=== PATIENT | female | born 1955 | race Caucasian/White ===

== ENCOUNTER → 2017-08-14 08:51 | Outpatient (CLI) | payer BC, SELFPAY ==
[2017-08-14 12:07] LABS: Phenytoin (Dilantin) Level 27.1 mL (10.0-20.0)
== END ==
PROVIDERS: Family Provider Family Medicine; PCP Family Medicine
DX: G40.309 Generalized idiopathic epilepsy and epileptic syndromes, not intractable, without status epilepticus (principal)
CPT/HCPCS: 36415; 80184; 80185; 80186

== ENCOUNTER → 2017-09-18 08:00 | Outpatient (CLI) | payer BC, SELFPAY ==
--- NOTE | 2017-09-18 08:01 | HPBI_ITS ---
MAMMOGRAPHY - BILATERAL SCREENING REASON FOR EXAM: Female, 62 years old. Routine annual screening examination. PERTINENT HISTORY: Remote right excisional breast biopsy. TECHNIQUE: Digital bilateral breast butch (3D mammographic acquisition) in the CC and MLO projections. 2-D mediolateral oblique (MLO) and craniocaudad (CC) views of both breasts were obtained. CAD: Full Field Digital Mammography with Computer Added Detection was performed. COMPARISON: Comparison is made with prior examination December 03, 2014. FINDINGS: Breast Composition: The breasts are heterogeneously dense, which may obscure small masses. There are no dominant masses or suspicious calcifications. No other significant abnormalities are identified. There has been no significant change since the prior study. HPBI/SCREENING MAMM (CAD), BILAT IMPRESSION: Stable bilateral screening mammogram. Yearly follow-up mammogram recommended. (A) ASSESSMENT CATEGORY: BIRADS Category 2: Benign. A letter regarding these results will be sent to the patient by the facility within 30 days. Approximately 10% of breast cancers are not detected by mammography. A normal mammogram should not delay biopsy of a clinically suspicious abnormality. [id number] Electronically Signed: Timothy Beyer MD at 9:01 EST Tel [phone], Service support ,
== END ==
PROVIDERS: Family Provider Family Medicine; PCP Family Medicine; Visit Provider Family Medicine
DX: Z12.31 Encounter for screening mammogram for malignant neoplasm of breast (principal)
CPT/HCPCS: 77063; 77067

== ENCOUNTER → 2018-07-18 08:35 | Outpatient (CLI) | payer BC, SELFPAY ==
[2018-07-18 09:26] LABS: Absolute Lymphocyte Count 1.19 X10^3/ul (0.83-4.51); Absolute Neutrophil Count 2.2 X10^3/uL (2.0-7.7); Basophil# 0.01 X10^3/uL; Basophil% 0.3 % (0-1); Hematocrit 45.2 % (37-47); Hemoglobin 14.8 g/dl (12.0-15.0); Lymphocyte # 1.19 X10^3/ul (4.0); Lymphocyte % 30.9 % (19-41); Mean Corp Hgb Conc 32.7 g/gl (32-36); Mean Corpuscular Hgb 30.5 pg (27.0-32.0); Mean Platelet Vol. 9.3 fl (6.2-12.0); Monocyte# 0.44 X10^3/uL; Monocyte% 11.4 % (0-10); Neutrophil # 2.21 X10^3/uL (2.7-7.7); Neutrophil % 57.4 % (47-70); Platelet Count 263 K/mm3 (150-450); RBC Distribution Width SD 46.1 fl (35.1-43.9); Red Blood Count 4.86 M/mm3 (4.2-5.4); White Blood Count 3.9 K/mm3 (4.4-11.0)
[2018-07-18 09:28] LABS: POSITIVE COUNT NO; POSITIVE DIFFERENTIAL NO; POSITIVE MORPHOLOGY NO
[2018-07-18 09:57] LABS: ALB/GLOB Ratio 1.1 RATIO (0.9-2.4); AST(SGOT) 19 U/L (15-37); Alanine Aminotransfer ALT/SGPT 24 U/L (13-56); Albumin, Serum 4.1 g/dL (3.2-5.0); Alkaline Phosphatase 94 U/L (45-117); Anion Gap 7 (5-15); BUN 15 mg/dL (7-18); BUN/Creat Ratio 20.1 RATIO (10-20); Chloride 104 mmol/L (98-107); Cholesterol 242 mg/dL (200); Creatinine, Serum 0.74 mg/dL (0.55-1.02); EST Glomerular Filtration Rate 83 mL/min (>60); Est Glom Filt Rate - Afr Amer 101 mL/min (>60); Globulin 3.8 g/dL (2.2-4.2); Glucose 93 mg/dL (74-106); High Density Lipoprotein 76 mg/dL; Potassium 4.1 mmol/L (3.5-5.1); Protein, Total 7.9 g/dL (6.4-8.2); Sodium Level 143 mmol/L (136-145); Triglycerides 84 mg/dL; Very Low Density Lipoprotein 17 mg/dL (5-40)
[2018-07-18 10:49] LABS: Vitamin D,25 Hydroxy 29.6 ng/mL (29.95-100.01)
[2018-07-18 11:47] LABS: Phenytoin (Dilantin) Level 17.6 mL (10.0-20.0)
== END ==
PROVIDERS: Family Provider Family Medicine; PCP Family Medicine; Referring Provider Family Medicine; Visit Provider Family Medicine
DX: E78.5 Hyperlipidemia, unspecified (principal); Z51.81 Encounter for therapeutic drug level monitoring; E55.9 Vitamin D deficiency, unspecified; R56.9 Unspecified convulsions
CPT/HCPCS: 36415; 80053; 80061; 80184; 80185; 82248; 82306; 85025

== ENCOUNTER → 2018-12-12 15:10 | Outpatient (CLI) | payer BC, SELFPAY ==
--- NOTE | 2018-12-12 15:13 | BI_ITS ---
MAMMOGRAPHY - BILATERAL SCREENING REASON FOR EXAM: Female, 63 years old. Routine annual screening examination. PERTINENT HISTORY: Non-contributory. Remote right excisional breast biopsy. TECHNIQUE: Digital bilateral breast butch (3D mammographic acquisition) in the CC and MLO projections. 2-D mediolateral oblique (MLO) and craniocaudad (CC) views of both breasts were obtained. CAD: Full Field Digital Mammography with Computer Added Detection was performed. COMPARISON: Comparison is made with prior study dated September 18, 2017 and December 03, 2014. FINDINGS: Breast Composition: The breasts are heterogeneously dense, which may obscure small masses. There are no dominant masses or suspicious calcifications. No other significant abnormalities are identified. There has been no significant change since the prior study. BI/SCREENING MAMM (CAD), BILAT IMPRESSION: Stable bilateral screening mammogram. Yearly follow-up mammogram recommended. (A) ASSESSMENT CATEGORY: BIRADS Category 1: Negative. A letter regarding these results will be sent to the patient by the facility within 30 days. Approximately 10% of breast cancers are not detected by mammography. A normal mammogram should not delay biopsy of a clinically suspicious abnormality. [id number] Electronically Signed: Timothy Beyer, at 7:58 EDT , Service support ,
--- NOTE | 2018-12-12 15:14 | BD_ITS ---
STUDY: DUAL ENERGY X-RAY ABSORPTIOMETRY / DXA REASON FOR EXAM: Female, 63 years old. The patient is postmenopausal. No loss of height. TECHNIQUE: Bone Mineral Density (BMD) measurements of lumbar spine and bilateral hips were obtained. COMPARISON: Comparison is made with prior study dated December 03, 2014. FINDINGS: Lumbar Spine (L1-L4): g/cm2 (1.237) / T-score (0.6) / Z-score (2.1) Findings are suggestive of normal bone density with a low fracture risk. Left Femur Total: g/cm2 (0.880) / T-score (-1.0) / Z-score (0.1) Left Femoral Neck: g/cm2 (0.851) / T-score (-1.3) / Z-score (0.1) Right Femur Total: g/cm2 (0.920) / T-score (-0.7) / Z-score (0.5) Right Femoral Neck: g/cm2 (0.907) / T-score (-0.9) / Z-score (0.5) The T-Scores on the most recent prior examination were: Lumbar Spine (L1-L4): There has been improvement of bone density since the previous examination. Left Femur Total: which represents an improvement of 6.2%. Right Femur Total: which represents an improvement of 5.6%. BD/Dexa Bone Density Study IMPRESSION: The patient is considered osteopenic as outlined below according to World Monty Organization (WHO) criteria with a low fracture risk. There has been improvement of bone density since the previous examination. Reference Information: The T-score is the number of standard deviations above or below the standard which is normal for young adults at their peak bone mineral density. The World Health Organization (WHO) interprets the T-scores as follows: Above -1 Normal bone density Between -1 and -2.5 Osteopenia Equal to / or below -2.5 Osteoporosis As a practical clinical guideline, osteopenia may be graded as follows: Mild -1 through -1.5 Moderate -1.6 through -2.0 Severe -2.1 through -2.4 The Z-score is the number of standard deviations above or below age-matched controls. A Z-score of less than -1.5 would be considered abnormal. References: 1. NIH Osteoporosis and Related Bone Diseases http://www.osteo.org 2. International Society for Clinical Densitometry http://www.iscd.org 3. National Osteoporosis Foundation http://www.nof.org Electronically Signed: Timothy Beyer, at 8:06 EDT , Service support ,
== END ==
PROVIDERS: Family Provider Family Medicine; PCP Family Medicine; Referring Provider Family Medicine; Visit Provider Family Medicine
DX: Z12.31 Encounter for screening mammogram for malignant neoplasm of breast (principal); M81.0 Age-related osteoporosis without current pathological fracture; Z78.0 Asymptomatic menopausal state
CPT/HCPCS: 77063; 77067; 77080

== ENCOUNTER → 2019-08-27 08:51 | Outpatient (CLI) | payer MEDICARE, OTHER, SELFPAY ==
[2019-08-27 09:46] LABS: Absolute Lymphocyte Count 0.99 X10^3/uL (0.83-4.51); Absolute Neutrophil Count 1.2 X10^3/uL (2.0-7.7); Basophil# 0.01 X10^3/uL; Basophil% 0.4 % (0-1); Hematocrit 43.9 % (37-47); Hemoglobin 14.1 g/dL (12.0-15.0); Lymphocyte # 0.99 X10^3/ul (4.0); Lymphocyte % 39.8 % (19-41); Mean Corp Hgb Conc 32.1 g/dL (32-36); Mean Corpuscular Hgb 29.6 pg (27.0-32.0); Mean Platelet Vol. 9.7 fl (6.2-12.0); Monocyte# 0.29 X10^3/uL; Monocyte% 11.6 % (0-10); NRBC Flagged by Analyzer 0 % (0-5); Neutrophil # 1.19 X10^3/uL (2.7-7.7); Neutrophil % 47.8 % (47-70); Platelet Count 232 K/mm3 (150-450); RBC Distribution Width CV 13.1 % (11.6-14.6); RBC Distribution Width SD 44.5 fl (35.1-43.9); Red Blood Count 4.77 M/mm3 (4.2-5.4); White Blood Count 2.5 K/mm3 (4.4-11.0)
[2019-08-27 10:24] LABS: ALB/GLOB Ratio 1.1 RATIO (0.9-2.4); AST(SGOT) 13 U/L (15-37); Alanine Aminotransfer ALT/SGPT 25 U/L (13-56); Albumin, Serum 4.1 g/dL (3.2-5.0); Alkaline Phosphatase 85 U/L (45-117); Anion Gap 2 (5-15); BUN 14 mg/dL (7-18); BUN/Creat Ratio 19.1 RATIO (10-20); Calcium,Total 9.1 mg/dL (8.5-10.1); Chloride 103 mmol/L (98-107); Cholesterol 236 mg/dL (200); Creatinine, Serum 0.73 mg/dL (0.55-1.02); EST Glomerular Filtration Rate 85 mL/min (>60); Est Glom Filt Rate - Afr Amer 103 mL/min (>60); Globulin 3.9 g/dL (2.2-4.2); Glucose 91 mg/dL (74-106); High Density Lipoprotein 77 mg/dL; Potassium 4.1 mmol/L (3.5-5.1); Sodium Level 138 mmol/L (136-145); Triglycerides 67 mg/dL; Very Low Density Lipoprotein 13 mg/dL (5-40); Vitamin D,25 Hydroxy 34.1 ng/mL (29.95-100.01)
[2019-08-27 10:29] LABS: Phenytoin (Dilantin) Level 24.9 mL (10.0-20.0)
== END ==
PROVIDERS: PCP Family Medicine; Referring Provider Family Medicine; Visit Provider Family Medicine
DX: E78.5 Hyperlipidemia, unspecified (principal); R56.9 Unspecified convulsions; R53.83 Other fatigue; E55.9 Vitamin D deficiency, unspecified; Z51.81 Encounter for therapeutic drug level monitoring
CPT/HCPCS: 36415; 80053; 80061; 80184; 80185; 82306; 85025

== ENCOUNTER → 2020-03-18 10:18 | Outpatient (CLI) | payer MEDICARE, OTHER, SELFPAY ==
--- NOTE | 2020-03-18 10:20 | BI_ITS ---
MAMMOGRAPHY - BILATERAL SCREENING REASON FOR EXAM: Female, 64 years old. Routine annual screening examination. PERTINENT HISTORY: Non-contributory. TECHNIQUE: Digital bilateral breast angel (3D mammographic acquisition) in the CC and MLO projections. 2-D mediolateral oblique (MLO) and craniocaudad (CC) views of both breasts were obtained. CAD: Full Field Digital Mammography with Computer Added Detection was performed. COMPARISON: Comparison is made with prior study dated 12/12/2018 and 09/18/2017. FINDINGS: Breast Composition: The breasts are heterogeneously dense, which may obscure small masses. There are no dominant masses or suspicious calcifications. There now is evidence of a 8.2 mm x 7.4 mm well-defined nodule at the 6 o''clock position of the left breast. Correlation with ultrasound is recommended. No other significant abnormalities are identified. BI/SCREEN MAMM (CAD) W/ANGEL BILAT IMPRESSION: There is a new 8.2 mm x 7.4 mm well-defined nodule at the 6 o''clock position of the left breast as described. Correlation with ultrasound is recommended. ASSESSMENT CATEGORY: BIRADS Category 0: Incomplete. Need additional imaging evaluation. A letter regarding these results will be sent to the patient by the facility within 30 days. Approximately 10% of breast cancers are not detected by mammography. A normal mammogram should not delay biopsy of a clinically suspicious abnormality. [id number] Electronically Signed: Timothy Beyer, at 11:34 EDT , Service support ,
== END ==
PROVIDERS: PCP Family Medicine; Referring Provider Family Medicine; Visit Provider Family Medicine
DX: Z12.31 Encounter for screening mammogram for malignant neoplasm of breast (principal); R92.8 Other abnormal and inconclusive findings on diagnostic imaging of breast; N63.25 Unspecified lump in the left breast, overlapping quadrants
CPT/HCPCS: 77063; 77067

== ENCOUNTER → 2020-03-22 08:29 | Outpatient (CLI) | payer MEDICARE, OTHER, SELFPAY ==
--- NOTE | 2020-03-22 08:31 | US_ITS ---
STUDY: ULTRASOUND BREAST - LEFT REASON FOR EXAM: Female, 64 years old. Abnormal screening mammogram. TECHNIQUE: Axial and longitudinal images of the LEFT breast were performed with a high resolution ultrasound transducer. # OF IMAGES: 35 COMPARISON: Comparison is made with prior mammogram dated 03/18/2020. FINDINGS: LEFT Breast: The mammographic abnormality corresponds to a 7 mm x 7 mm x 2 mm cystic/solid nodule at the 5 o''clock position of the breast at 2 cm from the nipple. This may represent a complicated cyst although aspiration is recommended. US/Breast Limited Unilateral IMPRESSION: The mammographic abnormality corresponds to a 7 mm x 7 mm x 2 mm cystic/solid nodule. Needle aspiration is recommended. ASSESSMENT CATEGORY: BIRADS Category 4: Suspicious - Biopsy Should Be Considered. A letter regarding these results will be sent to the patient by the facility within 30 days. Electronically Signed: Timothy Beyer, at 10:08 EDT , Service support ,
== END ==
PROVIDERS: PCP Family Medicine; Referring Provider Family Medicine; Visit Provider Family Medicine
DX: R92.8 Other abnormal and inconclusive findings on diagnostic imaging of breast (principal); N63.20 Unspecified lump in the left breast, unspecified quadrant
CPT/HCPCS: 76642

== ENCOUNTER → 2020-04-21 14:48 | Outpatient (CLI) | payer MEDICARE, OTHER, SELFPAY ==
[2020-04-21 14:00] VITALS: BMI 31.6
--- NOTE | 2020-04-21 14:51 | BI_ITS ---
MAMMOGRAPHY - UNILATERAL DIAGNOSTIC: LEFT BREAST REASON FOR EXAM: Female, 64 years old. Post aspiration images. PERTINENT HISTORY: TECHNIQUE: Digital unilateral breast butch (3D mammographic acquisition) in the CC and MLO projections. 2-D mediolateral oblique (MLO) and craniocaudad (CC) views of both breasts were obtained. CAD: Full Field Digital Mammography with Computer Added Detection was performed. COMPARISON: Comparison is made with prior study dated 03/18/2020. FINDINGS: Breast Composition: The breasts are heterogeneously dense, which may obscure small masses. The previously seen nodular density in the inferior central portion of the left breast has decreased in size. It presently measures 6.4 mm x 4.9 mm. No other significant abnormalities are identified. BI/DIAG MAMM W/CAD, UNILAT IMPRESSION: Status post aspiration of a nodular density in the inferior central portion of the left breast. The nodule has decreased in size. ASSESSMENT CATEGORY: BIRADS Category 2: Benign. A letter regarding these results will be sent to the patient by the facility within 30 days. Approximately 10% of breast cancers are not detected by mammography. A normal mammogram should not delay biopsy of a clinically suspicious abnormality. Electronically Signed: Timothy Beyer, at 15:34 EDT , Service support ,
== END ==
PROVIDERS: PCP Family Medicine; Referring Provider Surgery; Visit Provider Surgery
DX: Z98.890 Other specified postprocedural states (principal); N63.42 Unspecified lump in left breast, subareolar
CPT/HCPCS: 77065

== ENCOUNTER → 2020-09-04 08:11 | Outpatient (CLI) | payer MEDICARE, OTHER, SELFPAY ==
[2020-04-21 14:00] VITALS: BMI 31.6
[2020-09-04 08:54] LABS: Hematocrit 43.8 % (37-47); Hemoglobin 13.9 g/dL (12.0-15.0); Mean Corp Hgb Conc 31.7 g/dL (32-36); Mean Corpuscular Volume 94.6 fL (81-99); Mean Platelet Vol. 9.6 fl (6.2-12.0); Platelet Count 227 K/mm3 (150-450); RBC Distribution Width CV 13.7 % (11.6-14.6); RBC Distribution Width SD 48.2 fl (35.1-43.9); Red Blood Count 4.63 M/mm3 (4.2-5.4); White Blood Count 3.4 K/mm3 (4.4-11.0)
[2020-09-04 09:30] LABS: AST(SGOT) 20 U/L (15-37); Alanine Aminotransfer ALT/SGPT 25 U/L (13-56); Albumin, Serum 4.1 g/dL (3.2-5.0); Alkaline Phosphatase 83 U/L (45-117); Anion Gap 2 (5-15); BUN 15 mg/dL (7-18); BUN/Creat Ratio 21.1 RATIO (10-20); Bilirubin, Direct 0.08 mg/dL (0.00-0.30); Calcium,Total 8.8 mg/dL (8.5-10.1); Chloride 106 mmol/L (98-107); Creatinine, Serum 0.71 mg/dL (0.55-1.02); EST Glomerular Filtration Rate 88 mL/min (>60); Est Glom Filt Rate - Afr Amer 106 mL/min (>60); Globulin 3.7 g/dL (2.2-4.2); Glucose 76 mg/dL (74-106); Potassium 3.9 mmol/L (3.5-5.1); Protein, Total 7.8 g/dL (6.4-8.2); Sodium Level 140 mmol/L (136-145)
== END ==
PROVIDERS: PCP Family Medicine
DX: R56.9 Unspecified convulsions (principal)
CPT/HCPCS: 36415; 80048; 80076; 85027

== ENCOUNTER 2021-08-04 10:28 | Outpatient (CLI) | payer MEDICARE, OTHER, SELFPAY ==
[2021-08-04 11:29] LABS: Absolute Lymphocyte Count 1.11 X10^3/uL (0.83-4.51); Absolute Neutrophil Count 2.1 X10^3/uL (2.0-7.7); Basophil# 0.01 X10^3/uL; Basophil% 0.3 % (0-1); Hematocrit 45.1 % (37-47); Hemoglobin 14.3 g/dL (12.0-15.0); Lymphocyte # 1.11 X10^3/ul (0.83-4.51); Lymphocyte % 29.8 % (19-41); Mean Corp Hgb Conc 31.7 g/dL (32-36); Mean Corpuscular Hgb 29.7 pg (27.0-32.0); Mean Corpuscular Volume 93.6 fL (81-99); Mean Platelet Vol. 9.6 fl (6.2-12.0); Monocyte# 0.48 X10^3/uL; Monocyte% 12.9 % (0-10); NRBC Flagged by Analyzer 0 % (0-5); Neutrophil # 2.11 X10^3/uL (2.7-7.7); Neutrophil % 56.7 % (47-70); Platelet Count 250 K/mm3 (150-450); RBC Distribution Width CV 13.4 % (11.6-14.6); RBC Distribution Width SD 45.7 fl (35.1-43.9); Red Blood Count 4.82 M/mm3 (4.2-5.4); White Blood Count 3.7 K/mm3 (4.4-11.0)
[2021-08-04 12:13] LABS: Vitamin D,25 Hydroxy 33.6 ng/mL
[2021-08-04 12:17] LABS: ALB/GLOB Ratio 1.1 RATIO (0.9-2.4); AST(SGOT) 17 U/L (15-37); Alanine Aminotransfer ALT/SGPT 29 U/L (13-56); Albumin, Serum 4.2 g/dL (3.2-5.0); Alkaline Phosphatase 88 U/L (45-117); Anion Gap 3 (5-15); BUN 13 mg/dL (7-18); BUN/Creat Ratio 19.9 RATIO (10-20); Calcium,Total 9.1 mg/dL (8.5-10.1); Chloride 103 mmol/L (98-107); Cholesterol 226 mg/dL (200); Creatinine, Serum 0.65 mg/dL (0.55-1.02); EST Glomerular Filtration Rate 96 mL/min (>60); Est Glom Filt Rate - Afr Amer 116 mL/min (>60); Globulin 3.9 g/dL (2.2-4.2); Glucose 95 mg/dL (74-106); High Density Lipoprotein 82 mg/dL; Potassium 4.2 mmol/L (3.5-5.1); Protein, Total 8.1 g/dL (6.4-8.2); Sodium Level 139 mmol/L (136-145); Triglycerides 69 mg/dL; Very Low Density Lipoprotein 14 mg/dL (5-40)
[2021-08-04 12:19] LABS: Phenytoin (Dilantin) Level 24.9 mL (10.0-20.0)
== END 2021-08-04 23:59 | disposition short-term general hospital (02) ==
PROVIDERS: PCP Family Medicine; Referring Provider Family Medicine; Visit Provider Family Medicine
DX: E78.5 Hyperlipidemia, unspecified (principal); E55.9 Vitamin D deficiency, unspecified; Z51.81 Encounter for therapeutic drug level monitoring
CPT/HCPCS: 36415; 80053; 80061; 80184; 80185; 82306; 85025

== ENCOUNTER 2021-08-10 10:24 | Outpatient (CLI) | payer MEDICARE, OTHER, SELFPAY ==
--- NOTE | 2021-08-10 10:26 | BI_ITS ---
MAMMOGRAPHY - BILATERAL SCREENING REASON FOR EXAM: Female, 66 years old. Routine annual screening examination. PERTINENT HISTORY: Non-contributory. History of prior right excisional breast biopsy and left breast aspiration.. TECHNIQUE: Digital bilateral breast angel (3D mammographic acquisition) in the CC and MLO projections. 2-D mediolateral oblique (MLO) and craniocaudad (CC) views of both breasts were obtained. CAD: Full Field Digital Mammography with Computer Added Detection was performed. COMPARISON: Comparison is made with prior study dated 03/18/2020 and 04/21/2020. FINDINGS: Breast Composition: The breasts are heterogeneously dense, which may obscure small masses. The previously seen nodular density in the inferior central portion of the left breast has increased in size. It presently measures 1.4 cm x 1.1 cm. Correlation with ultrasound is recommended. No other significant abnormalities are identified. BI/SCRN MAMM (CAD)W/ANGEL BILAT IMPRESSION: Interval increase in size of the previously seen nodule in the deep inferior central portion of the left breast as described. Correlation with ultrasound is recommended. ASSESSMENT CATEGORY: BIRADS Category 0: Incomplete. Need additional imaging evaluation. A letter regarding these results will be sent to the patient by the facility within 30 days. Approximately 10% of breast cancers are not detected by mammography. A normal mammogram should not delay biopsy of a clinically suspicious abnormality. [id number] Electronically Signed: Timothy Beyer MD at 12:13 EST , Service support ,
--- NOTE | 2021-08-10 10:30 | BD_ITS ---
STUDY: DUAL ENERGY X-RAY ABSORPTIOMETRY / DXA REASON FOR EXAM: Female, 66 years old. 627.8Menopausal postmenopausalBONE DENSITY REASON FOR EXAM TECHNIQUE: Bone Mineral Density (BMD) measurements of lumbar spine and bilateral hips were obtained. COMPARISON: Comparison is made with prior study dated 12/12/2018. FINDINGS: Lumbar Spine (L1-L4): g/cm2 (0.987) / T-score (0.1) / Z-score (1.9) Findings are suggestive of normal bone density with a low fracture risk. Left Femur Total: g/cm2 (0.811) / T-score (-1.1) / Z-score (0.3) Left Femoral Neck: g/cm2 (0.772) / T-score (-0.7) / Z-score (0.9) Right Femur Total: g/cm2 (0.870) / T-score (-0.6) / Z-score (0.8) Right Femoral Neck: g/cm2 (0.811) / T-score (-0.3) / Z-score (1.3) The T-Scores on the most recent prior examination were: Lumbar Spine (L1-L4): There has been worsening of bone density since the previous examination. Left Femur Total: which represents a worsening of 0.8%. Right Femur Total: which represents an improvement of 1.6%. BD/Dexa Bone Density Study IMPRESSION: The patient is considered osteopenic as outlined below according to World Monty Organization (WHO) criteria with a low fracture risk. There has been worsening of bone density since the previous examination. Reference Information: The T-score is the number of standard deviations above or below the standard which is normal for young adults at their peak bone mineral density. The World Health Organization (WHO) interprets the T-scores as follows: Above -1 Normal bone density Between -1 and -2.5 Osteopenia Equal to / or below -2.5 Osteoporosis As a practical clinical guideline, osteopenia may be graded as follows: Mild -1 through -1.5 Moderate -1.6 through -2.0 Severe -2.1 through -2.4 The Z-score is the number of standard deviations above or below age-matched controls. A Z-score of less than -1.5 would be considered abnormal. References: 1. NIH Osteoporosis and Related Bone Diseases www osteo.org 2. International Society for Clinical Densitometry www iscd.org 3. National Osteoporosis Foundation www nof.org Electronically Signed: Timothy Beyer MD at 15:40 EST , Service support ,
== END 2021-08-10 23:59 | disposition short-term general hospital (02) ==
LOC: OPBD 10:25
PROVIDERS: PCP Family Medicine; Referring Provider Family Medicine; Visit Provider Family Medicine
DX: Z12.31 Encounter for screening mammogram for malignant neoplasm of breast (principal); Z78.0 Asymptomatic menopausal state
CPT/HCPCS: 77063; 77067; 77080

== ENCOUNTER 2021-08-12 08:16 | Outpatient (CLI) | payer MEDICARE, OTHER, SELFPAY ==
--- NOTE | 2021-08-12 08:19 | US_ITS ---
STUDY: ULTRASOUND BREAST - LEFT REASON FOR EXAM: Female, 66 years old. Abnormal screening mammogram. TECHNIQUE: Axial and longitudinal images of the LEFT breast were performed with a high resolution ultrasound transducer. # OF IMAGES: 21 COMPARISON: Comparison is made with prior mammogram dated 08/10/2021 and prior ultrasound of the left breast dated 03/22/2020. FINDINGS: LEFT Breast: There is a 8mm by 9 mm x 2 mm cyst at the 5 o''clock position breast at 2 cm from nipple. This is unchanged. The mammographic abnormality corresponds to a 1 cm x 1.5 cm x 0.9 cm mixed echogenicity solid nodule at the 7 o''clock position of the breast at 2 cm from nipple. A biopsy is recommended. US/Breast Limited Unilateral IMPRESSION: Stable 8 mm x 9 mm x 2 mm cyst at the 5 o''clock position of the breast at 2 cm from nipple. There is a new 1 cm x 1.5 cm x 0.9 cm complex solid nodule at the 7 o''clock location of the breast at 2 cm from nipple. This corresponds to the mammographic findings. Biopsy is recommended. ASSESSMENT CATEGORY: BIRADS Category 4: Suspicious - Biopsy Should Be Considered. A letter regarding these results will be sent to the patient by the facility within 30 days. Electronically Signed: Timothy Beyer MD at 15:18 EST , Service support ,
== END 2021-08-12 23:59 | disposition short-term general hospital (02) ==
LOC: OPUS 08:16
PROVIDERS: PCP Family Medicine; Referring Provider Family Medicine; Visit Provider Family Medicine
DX: N63.23 Unspecified lump in the left breast, lower outer quadrant (principal); N63.24 Unspecified lump in the left breast, lower inner quadrant
CPT/HCPCS: 76642

== ENCOUNTER 2021-08-17 11:36 | Outpatient (CLI) | payer MEDICARE, OTHER, SELFPAY ==
--- NOTE | 2021-08-17 | IMM_PTH ---
PATIENT: SIDDHARTH MCKEON LOC: [facility] U#:[id number] AGE/SX: 66/F ROOM: RE08/17/[address]: Dr. Rip Montanez MD : 1955 BED: DIS: 08/17/2021 SPEC #: [id number] RECD: 08/18/21 12:24 STATUS: CEDRIC REAvelina #: [id number] JOHN: 08/17/21 00:[address]: Rip Montanez DEPT: IMMUNOHISTOCHEMISTRY RECD BY: Cassy Moore ENTERED: 08/18/21 12:26 SP TYPE: IMMUNO OTHR DR: Dr. Radha Gómez DO Tissues: Left breast, NOS Procedures: CALPONIN-1 (add) CK5-6 (add) CK8 (add) BARRAGAN-2 (add) E-CAD (add) HER2 CRUZ (add) KI-67 (add) P53 (add) MN (add) P40 (add) ER (initial) PHYSICIAN & [address] [address] SPECIMEN INFORMATION: Tissue Source: Left breast Clinical Info: Abnormal left breast ultrasound Specimen Number: [id number] CPT code: 01971, 51102 x7, 34786 x3 METHODOLOGY: Deparaffinized sections of prefer/formalin-fixed tissue or PAP/DQ stained slides are incubated with monoclonal/polyclonal antibodies/oligonucleotide probes. Localization is made via biotin free immunoperoxidase method. Appropriate controls are performed and reacted as expected. Results on target cell population are indicated in the following table: RESULTS: ANTIBODY / CLONE RESULT P53 (DO-7) positive, 5%, dim Ki-67 (30-9) positive, 10% CK8 (86ndpmI72) positive CK5-6 (D5 & 1684) negative Calponin-1 (UW564Y) negative P40 (BC28) negative E-Cad (ECH-6) positive BARRAGAN-2 (SP21) positive MORPHOMETRIC ANALYSIS ER (clone 6F11) >95%, strong MN (clone 16/1E2) >95%, strong Her-2Neu (clone CB11) 0 The prognostic test for HER2 is performed on formalin-fixed paraffin embedded tissue. A 3+ (positive) staining pattern is defined as intense, homogeneous, complete, circumferential membranous staining in >10% of contiguous tumor cells. A similar weak (2+) staining pattern is interpreted as equivocal. CYNDI follow-up testing is recommended for all equivocal cases. Positivity/negativity for ER/MN is reported if > or < 1% of the tumor cells are immuno- reactive, respectively. The ASCO/CAP criteria is used for scoring. Reference: Journal of Clinical Oncology, 2013; 31:7113-6396 & 2010; 16:3911-1073. Duration of fixation: 12 Hrs; Sample Adequate: Yes. These assays have not been validated on decalcified tissues. Results should be interpreted with caution given the likelihood of false negativity on decalcified specimens. These tests were developed and their performance characteristics determined by [facility]. They may not have been cleared or approved by the U.S. Food and Drug Administration. The FDA has determined that such clearance or approval is not necessary. The above immunohistochemical/dualISH markers are ordered and reviewed by the Pathologist. INTERPRETATION: Left breast, biopsy: Invasive (colloid) carcinoma, nuclear grade 1-2. Positive for estrogen receptors (favorable prognostic indicator). Positive for progesterone receptors (favorable prognostic indicator). Negative for overexpression of UAF9rrx. AM:марина 08/19/2021
--- NOTE | 2021-08-17 07:40 | BRBX_PTH ---
PATIENT: SIDDHARTH MCKEON LOC: [facility] U#:[id number] AGE/SX: 66/F ROOM: RE08/17/[address]: Dr. Rip Montanez MD : 1955 BED: DIS: 08/17/2021 SPEC #: [id number] RECD: 08/17/21 11:17 STATUS: CEDRIC DIEZ #: [id number] JOHN: 08/17/21 07:[address]: Rip Montanez DEPT: SURGICAL PATHOLOGY RECD BY: Wilfredo Rich ENTERED: 08/17/21 11:49 SP TYPE: BREAST BX OTHR DR: Dr. Radha Gómez, DO Tissues: Left breast, NOS Procedures: Surgery Specimen Level IV HEADER OPERATION: Left breast biopsy PRE-OP DIAGNOSIS: Abnormal left breast ultrasound TISSUE SUBMITTED: Left breast tissue MICROSCOPIC DIAGNOSIS Left breast, ultrasound-guided core biopsy: Invasive ductal carcinoma (colloid carcinoma) with the following characteristics: Nuclear grade ? grade 1-2/3 Maximal length ? 5 millimeters See comment. AM:марина 08/18/2021 COMMENT Immunohistochemistry ([id number]) supports the above diagnosis. Case has been reviewed in consultation with Dr. Lazaro who concurs with the above diagnosis. IDC:REHAN MICROSCOPIC DESCRIPTION Slides are reviewed. GROSS DESCRIPTION Received in fixative is one container labeled with the patient's name and designated left breast. The specimen consists of multiple elongated fragments of nam-yellow fibroadipose tissue that in aggregate measure 1.5 x 1 x 0.1 cm. The entire specimen is submitted in one cassette. / REHAN:марина 08/17/2021 TC:0 CPT: 68259
== END 2021-08-17 23:59 | disposition short-term general hospital (02) ==
LOC: LABSPEC 11:38
PROVIDERS: PCP Family Medicine; Visit Provider Surgery
DX: C50.912 Malignant neoplasm of unspecified site of left female breast (principal)
CPT/HCPCS: 88305; 88341; 88342

== ENCOUNTER 2021-09-07 07:33 | Day surgery (SDC) | payer MEDICARE, OTHER, SELFPAY ==
--- NOTE | 2021-09-06 11:08 | EKG12_ITS ---
Test Reason : PREOP Blood Pressure : / mmHG Vent. Rate : 068 BPM Atrial Rate : 068 BPM P-R Int : 154 ms QRS Dur : 082 ms QT Int : 388 ms P-R-T Axes : 061 040 020 degrees QTc Int : 412 ms Normal sinus rhythm Normal ECG Confirmed by AP BRIGHT, OLEGARIO ([id number]), film or videotape editor REN RYAN ([id number]) on 09/07/2021 11:49:29 AM Referred By: Rip Montanez Confirmed By:OLEGARIO DE SOUZA MD
--- NOTE | 2021-09-06 11:10 | RAD_ITS ---
STUDY: X-RAY CHEST REASON FOR EXAM: Female, 66 years old. PREOP -- BREAST CANCER TECHNIQUE: PA and lateral views of the chest. COMPARISON: Comparison is made with prior study dated 08/13/2012. FINDINGS: There is hyperinflation of the lungs consistent with chronic obstructive lung disease (COPD). There is no demonstrated pleural abnormality. Normal size heart. Normal mediastinum and li. Normal visualized pulmonary arteries. Normal visualized aortic arch and descending thoracic aorta. There is demineralization of the osseous structures. Normal visualized ribs, clavicles, and shoulders. There is no demonstrated abnormality of the visualized soft tissue structures of the upper abdomen. RAD/Chest PA and Lateral IMPRESSION: Hyperinflation. The lungs are clear. Electronically Signed: Timothy Beyer MD at 14:05 EST ,
[2021-09-06 12:25] LABS: Hematocrit 43.1 % (37-47); Hemoglobin 13.9 g/dL (12.0-15.0); Mean Corp Hgb Conc 32.3 g/dL (32-36); Mean Corpuscular Hgb 30.2 pg (27.0-32.0); Mean Corpuscular Volume 93.5 fL (81-99); Mean Platelet Vol. 9.3 fl (6.2-12.0); Platelet Count 248 K/mm3 (150-450); RBC Distribution Width CV 13.8 % (11.6-14.6); RBC Distribution Width SD 47.8 fl (35.1-43.9); Red Blood Count 4.61 M/mm3 (4.2-5.4); White Blood Count 5.2 K/mm3 (4.4-11.0)
[2021-09-06 13:03] LABS: ALB/GLOB Ratio 1.1 RATIO (0.9-2.4); AST(SGOT) 19 U/L (15-37); Alanine Aminotransfer ALT/SGPT 27 U/L (13-56); Albumin, Serum 4.1 g/dL (3.2-5.0); Alkaline Phosphatase 83 U/L (45-117); Anion Gap 5 (5-15); BUN 14 mg/dL (7-18); BUN/Creat Ratio 19.1 RATIO (10-20); Chloride 104 mmol/L (98-107); Creatinine, Serum 0.73 mg/dL (0.55-1.02); EST Glomerular Filtration Rate 84 mL/min (>60); Est Glom Filt Rate - Afr Amer 102 mL/min (>60); Globulin 3.8 g/dL (2.2-4.2); Glucose 92 mg/dL (74-106); Protein, Total 7.9 g/dL (6.4-8.2); Sodium Level 140 mmol/L (136-145)
[2021-09-07] VITALS (7 sets, daily range): BP systolic 132–145; BP diastolic 62–81; PULSE 60–66; RESP 16–18; TEMP 36.3–37; O2SAT 97–100; BMI 33.0
--- NOTE | 2021-09-07 | IMM_PTH ---
PATIENT: SIDDHARTH MCKEON LOC: [facility] U#:[id number] AGE/SX: 66/F ROOM: RE09/07/[address]: Dr. Rip Montanez MD : 1955 BED: DIS: 09/07/2021 SPEC #: [id number] RECD: 09/13/21 07:31 STATUS: CEDRIC REQ #: [id number] JOHN: 09/07/21 00:[address]: Rip Montanez DEPT: IMMUNOHISTOCHEMISTRY RECD BY: Cassy Moore ENTERED: 09/13/21 07:32 SP TYPE: IMMUNO OTHR DR: Dr. Radha Gómez, DO Tissues: A - Axillary lymph node, NOS Procedures: CK7 (add) Pankeratin (initial) Pankeratin (add) PHYSICIAN & INSTITUTION [place] [address] SPECIMEN INFORMATION: Tissue Source: A ? Left axillary sentinel lymph nodes Clinical Info: Abnormal US and mammogram left breast, left breast mass Specimen Number: [id number] A1-A4 CPT code: 16366, 97605 x7 METHODOLOGY: Deparaffinized sections of prefer/formalin-fixed tissue or PAP/DQ stained slides are incubated with monoclonal/polyclonal antibodies/oligonucleotide probes. Localization is made via biotin free immunoperoxidase method. Appropriate controls are performed and reacted as expected. Results on target cell population are indicated in the following table: RESULTS: ANTIBODY / CLONE RESULT Block A1 AE1-3 (AE1/AE3/PCK26) negative CK7 (OV-TL12/30) negative Block A2 AE1-3 (AE1/AE3/PCK26) negative CK7 (OV-TL12/30) negative Block A3 AE1-3 (AE1/AE3/PCK26) negative CK7 (OV-TL12/30) negative Block A4 AE1-3 (AE1/AE3/PCK26) negative CK7 (OV-TL12/30) negative These tests were developed and their performance characteristics determined by [facility]. They may not have been cleared or approved by the U.S. Food and Drug Administration. The FDA has determined that such clearance or approval is not necessary. The above immunohistochemical/dualISH markers are ordered and reviewed by the Pathologist. INTERPRETATION: A. Left axillary sentinel lymph nodes, biopsy: Five out of five lymph nodes, negative for metastatic carcinoma. REHAN:марина 09/13/2021
--- NOTE | 2021-09-07 | AXNB_PTH ---
PATIENT: SIDDHARTH MCKEON LOC: [facility] – [place] U#:[id number] AGE/SX: 66/F ROOM: RE09/07/[address]: Dr. Rip Montanez MD : 1955 BED: DIS: 09/07/2021 SPEC #: [id number] RECD: 09/07/21 10:50 STATUS: CEDRIC REAvelina #: [id number] JOHN: 09/07/21 00:[address]: Rip Montanez DEPT: SURGICAL PATHOLOGY RECD BY: Cassy Moore ENTERED: 09/07/21 11:32 SP TYPE: AX NODE BX OTHR DR: Dr. Radha Gómez, DO Tissues: A - Axillary lymph node, NOS B - Left breast, NOS Procedures: Frozen Section (charge) Surgery Specimen Level IV Surgery Specimen Level V HEADER OPERATION: Left breast lumpectomy, left axillary sentinel lymph node biopsy PRE-OP DIAGNOSIS: Abnormal US and mammogram of left breast, left breast mass TISSUE SUBMITTED: A ? Left axillary sentinel lymph nodes, FS, B ? Left breast mass (wire exits laterally, short stitch superior, skin is anterior) FROZEN SECTION DIAGNOSIS A. Left axillary sentinel lymph nodes, biopsy: Five out of five lymph nodes, negative for metastatic carcinoma. : 09/07/2021 MICROSCOPIC DIAGNOSIS A. Left axillary sentinel lymph nodes, biopsy: Five out of five lymph nodes, negative for metastatic carcinoma. See comment. B. Left breast mass, lumpectomy with needle localization: Invasive ductal carcinoma (colloid carcinoma). See cancer summary in the comment section. :марина 09/13/2021 COMMENT A. The lymph nodes are negative for metastatic carcinoma on multiple H & E levels and immunohisto-chemical stains for cytokeratins ([id number]). B. BREAST CANCER SUMMARY Procedure - excision (lumpectomy) with needle localization Invasive tumor: Tumor site ? not specified Tumor size ? 1 cm in diameter Histologic type ? invasive ductal carcinoma (colloid carcinoma). Histologic grade ([place] grade): Glandular/tubular differentiation score - 3 Nuclear pleomorphism score - 2 Mitotic count score - 1 Overall grade - grade 2 (score of 6) Tumor focality ? single focus of invasive carcinoma. Ductal carcinoma in situ ? present Size (extent) of DCIS ? DCIS comprise <5% of the total tumor volume. Number of blocks with DCIS - 1 Number of blocks examined - 10 Architectural pattern - cribriform Nuclear grade - grade 1 Necrosis ? not identified Tumor extension: Skin ? present and uninvolved Nipple ? not applicable Skeletal muscle ? not present Margins: Invasive carcinoma and DCIS margins ? 0.5 cm away from the closest lateral margin. Regional lymph nodes: Number of lymph nodes examined - 5 Number of sentinel lymph nodes examined - 5 Number of lymph nodes with macrometastases, micrometastases or isolated tumor cells - 0 Treatment effect - no known presurgical therapy. Lymphvascular invasion ? not identified Dermal lymphvascular invasion - not identified Distant metastasis ? not applicable Additional Pathologic Findings ? mild intraductal hyperplasia without atypia. Ancillary Studies: Previously performed on same tumor ([id number]/ [id number]) ER: positive (>95, strong) CO: positive (>95, strong) [id number]: negative (0) Ki67: positive, 10% Microcalcifications ? not identified Clinical History - Please make reference to previous specimen ([id number]) left breast, ultrasound-guided core biopsy with diagnosis of ?invasive ductal carcinoma (colloid carcinoma).? PATHOLOGIC STAGE: pT1b pN0(sn) pMx The above summary is in compliance with [employer] [employer] (CAP) Cancer Protocols Checklist and [place] Joint Committee on Cancer (AJCC), Staging Manual, 8th Ed. MICROSCOPIC DESCRIPTION Slides are reviewed. GROSS DESCRIPTION A - Received fresh for frozen section diagnosis labeled with the patient's name is a specimen designated left axillary sentinel lymph node. The specimen consists of two pieces of fibroadipose tissue containing nodules consistent with lymph nodes measuring in aggregate 5 x 5 x 1 cm. Five lymph nodes are identified. The lymph nodes are submitted in entirety for frozen section diagnosis in four cassettes as follows: 1 ? two lymph nodes, one is inked black, 2-4 ? each cassette containing one lymph node. / REHAN:марина 09/07/2021 B - Received fresh for intraoperative consultation labeled with the patient's name is a specimen designated left breast mass. The specimen consists of a piece of fibroadipose tissue with needle localization measuring 4 x 3.5 x 2 cm. A piece of overlying skin is also noted measuring 3 x 0.7 cm. A small piece of separate adipose tissue is also noted measuring 2 x 1.5 x 0.5 cm. The specimen is oriented as follows: wire exits laterally, short stitch superior, skin is anterior. The specimen is inked as follows: anterior - yellow, posterior - black, superior - blue, inferior - green, medial - red and lateral - orange. Serial sections reveal a nam indurated mass measuring 1 cm in diameter. This mass is 0.5 cm from the lateral margin. This information is conveyed to the surgeon intraoperatively. Sections of the rest of the specimen reveal nam-yellow adipose cut surfaces with scant fibrous area. The entire specimen is submitted as follows: 1 ? perpendicular superior and inferior margin, 2-5 ? tumor with closest lateral margin, 6-10 ? rest of the specimen. Sections are submitted after additional fixation. / REHAN:марина 09/08/2021 TC:0 CPT: 09503, 47990, 32402
--- NOTE | 2021-09-07 08:00 | NM_ITS ---
PROCEDURE: NUCLEAR MEDICINE Injection [place] Node - LEFT breast(s). REASON FOR EXAM: Female, 66 years old. Left breast cancer. TECHNIQUE: [place] node localization using radionuclide methods of the LEFT breast(s) was performed following subcutaneous administration of 1.1 mCi of of sulfur colloid Tc-99m. FINDINGS: 1.1 mCi of technetium labeled sulfur colloid was injected subcutaneously in 4 equal aliquots in the periareolar region for sentinel node imaging. NM/Lymph Node Injection Only IMPRESSION: Subcutaneous injection of 1.1 mCi of technetium labeled sulfur colloid for sentinel node imaging. Electronically Signed: Timothy Beyer MD at 9:02 EST ,
[2021-09-07] MEDS: Lactated Ringers 1,000 ML 30 ML IV (08:18)
--- NOTE | 2021-09-07 08:50 | HP.PCM_ITS ---
History and Physical Date of Admission: 09/07/21 Intake Intake Visit Reasons: discuss surgery Chief Complaint: abn mammo left Allergies Sulfa (Sulfonamide Antibiotics) Allergy (Severe, Verified 08/24/21 14:05) Tongue feels swollen Medications alendronate 70 mg tablet 70 mg PO QWEEK 04/21/20 [History Confirmed 08/24/21] phenobarbital 32.4 mg tablet 32.4 mg PO TID tab 04/21/20 [History Confirmed 08/24/21] phenytoin sodium extended 100 mg capsule 100 mg PO TID 04/21/20 [History Confirmed 08/24/21] [facility] Medical History (Updated 08/24/21 @ 14:[address] Rip Montanez MD) Abnormal mammogram of left breast Abnormal ultrasound of breast Hyperlipidemia Seizure Surgical History History of bone marrow biopsy History of lumpectomy of right breast Family History Mother Diabetes CVA (cerebral vascular accident) Father lung/respiratory disease Social History Smoking Status: Never smoker alcohol intake: never substance use type: does not use HPI HPI HPI: SIDDHARTH MCKEON, is a 66 F who presents to the office today for surgical follow-up of ultrasound-guided needle core biopsy left breast 7:00 lower inner breast lesion. The biopsy was performed under ultrasound guidance on August 17, 2021. Pathology showed invasive ductal carcinoma colloid carcinoma nuclear grade 1-2 out of 3 with a maximal length of 5 mm. Estrogen receptor greater than 95%. Progesterone receptor greater than 95%. HER-2/brice 0 The patient has had a remote right breast lumpectomy perhaps 2030 years ago for benign disease. Intake Visit Reasons: BIRADS 4 LEFT BREAST Chief Complaint: abn mammo left [employer] Required: No Is patient in pain?: No Allergies Sulfa (Sulfonamide Antibiotics) Allergy (Severe, Verified 08/17/21 07:40) Tongue feels swollen Is last menstrual period known: No Post menopausal: Yes Patient : No [facility] Medical History (Updated 08/17/21 @ 08:[address] Rip Montanez MD) Abnormal mammogram of left breast Abnormal ultrasound of breast Hyperlipidemia Seizure Surgical History (Updated 04/21/20 @ 13:44 by Kayley Schroeder) History of bone marrow biopsy History of lumpectomy of right breast Family History (Updated 04/21/20 @ 13:45 by Kayley Schroeder) Mother Diabetes CVA (cerebral vascular accident) Father lung/respiratory disease Social History (Updated 04/21/20 @ 14:[address] Rip Montanez MD) Smoking Status: Never smoker alcohol intake: never substance use type: does not use HPI: SIDDHARTH MCKEON, is a 66 F who presents to the office today for surgical consultation regarding an abnormal mammogram. The patient is referred by Dr. Radha Gómez and a written copy my surgical consult recommendations will be returned to her. On August 12, 2021 the patient had a left breast ultrasound performed at the [facility]. This demonstrated at the 5 o'clock position +2 cm a 8 x 9 x 2 mm cyst. It also demonstrated a left breast 7 o'clock position +2 cm a 1 x 1.5 x 0.9 cm mixed echogenicity solid nodule. Biopsy recommended BI-RADS Category 4. She had had a previous bilateral screening mammogram on August 10, 2021. The comment is made that the previously seen nodular density in the inferior central portion of the left breast has increased in size currently measuring 1.4 x 1.1 cm. Correlation with ultrasound was recommended and the mammogram was graded as a BI-RADS Category 0 I had previously seen her on April 21, 2020 64-year-old female. G4, . Menarche at age 13. First I was born when she was 24. She did not breast-feed. Family history is negative for breast cancer. She has had no personal history of breast cancer. She had a remote history about 25 years ago of an upper outer quadrant right breast excisional biopsy. That ended up being for benign disease. She is not had any nipple discharge. No palpable masses. She presented for routine imaging. On March 18, 2020 at the [facility] she had bilateral mammography. There was felt to be a new 8.2 x 7.4 mm well-defined nodule 6 o'clock position left breast. Correlation with ultrasound was recommended. On March 22, 2020 at the [facility] a left breast ultrasound was done. There was felt to be a 7 x 7 x 2 mm cystic solid nodule at the 5 o'clock position +2 cm. It was felt possibly to represent a complicated cyst aspiration recommended BI-RADS Category 4. This was in consultation for a left breast 5 o'clock position +2 cm nodule. I was able to aspirate some fluid. And I obtained a post aspiration mammogram on the same day April 21, 2020 which was interpreted by as BI- RADS Category 2 with a decrease in size of the 5:00 nodule. At that time on the breast ultrasound of March 22, 2020 there was no discussion regarding a left breast 7:00 nodule. ROS General General: No weight change, appetite, fatigue, colon cancer, breast cancer or weakness HEENT HEENT: No difficulty swallowing, eye injury, eye surgery, swollen glands or hoarseness Endo Endocrine: No thyroid disease, diabetes mellitus, thyroid cancer, Hair loss, heat intolerance or cold intolerance Breast Breast: Yes left breast lump, abnormal mammogram and abnormal US; No right breast lump, nipple discharge, breast pain or breast enlargement Musc Musculoskeletal: No back problems, arthritis, rheumatoid arthritis, gout or joint pain Cardio Cardiovascular: No murmur, pacemaker, heart disease, atrial fibrillation, high blood pressure, heart attack, heart stent, palpitations, shortness of breat with exertion or chest pain Psych Psychiatric: No depression, anxiety or hearing voices Resp Respiratory: No shortness of breath, No sleep apnea, No cough, No COPD, No asthma, No emphysema and No wheezing Gastro Gastrointestinal: No abdominal pain, No nausea or vomiting, No diarrhea, No constipation, No blood in stool, No acid reflux, No hemorrhoids, No ulcers, No gallbladder problem and No black,tarry stools Iggy Hematologic: No blood thinners, No blood disorders, No bleeding, No anemia and No blood clots Neuro Neurologic: No weakness Exam Chest Other: Right breast: No focal mass, no nipple discharge, no axillary clavicular adenopathy Left breast: Easily palpable subcutaneous nodule left breast 6:30 position. No deep fixation. No dermal fixation. Possible slight skin pore but indeterminate. No erythema. No tenderness. No nipple discharge. No axillary or clavicular adenopathy Office Procedures Biopsy Provider Documentation Ultrasound-guided needle core biopsy left breast 6:30 position Timeout informed consent was obtained. The patient was taken to the procedure room. There is a vague 1 cm lesion 6:30 position left breast. It has ringdown on ultrasound. The breast is been prepped with Betadine. Under ultrasound guidance 1% lidocaine mixed 50-50 with 0.5% Marcaine was used as local anesthetic. A total of 5 cc was used. A small stab incision was created. 14-gauge Monopty needle was advanced to prefire depth. Pre and post fire films were obtained. 5 cores were obtained. A marking clip was left in position. Pressure was held for hemostasis. Steri-Strip Telfa OpSite dressing applied. Biopsy Breast Biopsy: [id number] US Guidance Procedure Time Out Time Out Informed consent given: Yes Consent signed: Yes Time out checklist: patient, procedure, site marked/identified, positioning of patient, supplies available, allergies confirmed and team agrees on procedure Time out staff in room: Yes Time out verified: Yes Time out date: 08/17/21 Time out time: 07:30 Assessment and Plan Assessment and Plan (1) Abnormal ultrasound of breast: Status: Acute (2) Abnormal mammogram of left breast: Status: Acute (3) Breast mass, left: Status: Acute Qualifiers: Breast mass location: lower inner quadrant Qualified Code(s): N63.24 - Unspecified lump in the left breast, lower inner quadrant Plan - Dr. Rip Montanez MD: Based upon clinical examination I thought this might represent a sebaceous cyst but it does not seem to have a distinct dermal attachment. The patient has remote history of minor trauma. There is ringdown on ultrasound suggesting more of a cystic etiology. Etiology is not clear. Pathology is pending. This does not correlate with the previous item that was seen at the left breast 5 o'clock position. We will have her return to the office. If the area has a benign item like a sebaceous cyst then we might consider a complete excisional removal of it at that setting. If the pathology is untoward then we will discuss those findings and plan for definitive surgery. I appreciate the opportunity of assisting with her surgical care Copy: Dr. Radha Montanez M.D., F.A.C.S. Exam Const General: cooperative, healthy appearing, comfortable and no acute distress Nutritional Appearance: average body habitus Orientation: alert and awake [facility] Head: normal to inspection Eyes General: appearance normal, both eyes and all related structures Neck Neck: normal visual inspection Chest Other: Right breast: No focal mass Left breast: Ecchymosis and some palpable area lower inner left breast 7 o'clock position. No deep fixation. No left axillary or clavicular adenopathy. No nipple discharge Resp Effort & Inspection: normal respiratory effort Auscultation: clear to auscultation bilaterally Cardio Rate: regular rate Rhythm: regular rhythm GI Palpation: soft and no hepatosplenomegaly Musc Cervical Spine: normal cervical lordosis Skin General: no rashes or lesions noted Neuro General: patient alert and patient awake Extrem General: no calf tenderness bilaterally Psych Appearance: grossly normal Assessment and Plan Assessment and Plan (1) Breast cancer: Status: Acute Qualifiers: Breast location: lower inner quadrant of breast Estrogen receptor status: positive Laterality: left Patient sex: female Qualified Code(s): C50.312 - Malignant neoplasm of lower-inner quadrant of left female breast; Z17.0 - Estrogen receptor positive status [ER+] Plan - Dr. Rip Montanez MD: 66-year-old female. 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 I discussed with her and her daughter recommendations for a ultrasound-guided wire localization with nuclear tracer and blue dye left axillary sentinel lymph node biopsy and wire-guided lower inner left breast lumpectomy. I discussed technique, benefit, risk and alternatives. She has had an opportunity to ask and have questions answered. We will schedule and expedite her care. She is aware that postoperative hematology oncology and radiation oncology consultations will be made. I appreciate the ongoing opportunity of assisting with her surgical care Copy: Dr. Radha Montanez M.D., F.A.C.S. I have re-examined the patient. There are no clinical changes since date of exam.
--- NOTE | 2021-09-07 08:50 | EX.PCM.DISCH ---
Discharge Instructions Procedure Breast Surgery Diet Discharge Diet: No restrictions Activity Discharge Activity: May Not Drive (for 2-3 days or while taking narcotic pain meds.) May shower in (days): 1 Lifting Restrictions: 10 pounds for 1 week. Dressing / Incision Call your doctor if your incision/area has: Continuous Slow Oozing and Sudden Increased Bleeding Call your doctor if you observe: Fever of 101 or Higher Suture Line Care: Avoid Pulling/Pushing and Avoid Pinching/Bending Remove Dressing in: 1 day Additional Dressing/Incision Instructions:: Remove bulky dressing tomorrow. May leave any opsite dressing for 3-4 days. Keep dressing in place until your follow-up appointment. Follow Up Care Test Results: Test results from this visit will be discussed in further detail at your follow-up appointment, if applicable. Discharge Plan Admission Attending Provider: Rip Montanez Primary Care Provider: Radha Gómez Discharge Orders/Prescriptions Prescriptions: No Action alendronate 70 mg tablet 70 mg PO WE RF: 0 phenobarbital 32.4 mg tablet 32.4 mg PO TID RF: 0 phenytoin sodium extended 100 mg capsule 100 mg PO TID RF: 0 cholecalciferol (vitamin D3) [Vitamin D3] 25 mcg (1,000 unit) Tablet,Chewable 50 mcg PO DAILY RF: 0 omega 3-eme-ihl-fish oil [Fish Oil] 1,000 mg (120 mg-180 mg) Capsule 1 cap PO DAILY RF: 0 Osteo Bi-Flex Triple Strength 750 mg-644 mg- 30 mg-1 mg Tablet 1 tab PO DAILY RF: 0 Other Ambulatory Orders: 12 Lead EKG (Routine) Timeframe: [id number] Location: None Selected Ordered By: Dr. Rip Montanez
[2021-09-07] MEDS: Isosulfan Blue 1% 5 ML Vial (10:04)
--- NOTE | 2021-09-07 11:04 | BI_ITS ---
SURGICAL BREAST SPECIMEN RADIOGRAPH CLINICAL: Document presence of tissue clip marker in biopsy specimen. FINDINGS: Specimen shows presence of tissue clip marker. Electronically Signed: Timothy Beyer MD at 11:57 EST , BI/Breast Biopsy Specimen
[2021-09-07] MEDS: Bupivacaine Mpf 0.5% 30 ML VIAL (11:11)
--- NOTE | 2021-09-07 11:19 | PCM.OPRPT ---
Problems Associated Problem List Diagnoses (1) Breast cancer: Report of Operation Date of Procedure: 09/07/21 Pre-Operative Diagnosis: Lower inner left breast invasive ductal carcinoma Post-Operative Diagnosis: Same Surgery/Procedure Performed:: Ultrasound guided wire localization lower mid left breast lumpectomy with left axillary nuclear tracer and blue dye sentinel lymph node biopsy Description of Surgical Findings:: Timeout informed consent was obtained. 66-year-old female was taken to the operative room placed on the table underwent general anesthesia. The left arm was carefully wrapped with soft roll and placed at right angles to the table. The left breast was prepped with alcohol. 3 cc of isosulfan blue dye was injected retroareolar Carlo. The patient had already received nuclear tracer injection per radiology. The left breast was then massaged for 3 minutes. The left breast was sterilely prepped and draped. Oblique incision was made in the left axilla and the lymphatic blue dye tracking was readily identified. Tedious sharp and blunt electrocautery dissection was performed down to the lymph nodes first identified by the blue dye tracking. Packet of lymph node was resected. Visual and palpation inspection revealed a small amount of residual indurated tissue which I then sharply excised. Additional inspection failed to reveal any residual tissue. The neoprobe was used to test the tissue resected in a very high count greater than 4000 was achieved. I then inspected the cavity with the neoprobe and did not detect anything greater than 10% jennifer. I then performed ultrasound inspection of the low mid left breast and the density in question was identified. The use ultrasound to then guide a 20-gauge Kopan's needle in a dislodged the wire. Because this was at this o'clock position I made a vertical ellipse of skin as I thought it was close to the dermal margin. Kylee retractors were placed and I dissected laterally to completely excised the lesion. A short suture was placed superiorly the wire exited laterally and the skin was anteriorly. Visual inspection failed to reveal any residual tumor within the cavity. Small hemoclips were used to jennifer the tumor bed and 4 clips were used. The subdermal tissue was approximated with interrupted 3-0 Vicryl sutures. Skin was approximated opted for Monocryl subdermal stitches. The sentinel node report demonstrated 5 sentinel nodes negative. The specimen report demonstrated the lesion to be centered with a 5 mm margin. The left axillary wound was closed with a deep layer of interrupted 3-0 Vicryl in a running septic or 4 Monocryl. Both wounds were treated with 0.5% Marcaine. A total 30 cc used. Steri-Strips Telfa OpSite dressings were applied. This was followed by bulky dry fluff dressings. Specimen left axillary sentinel lymph node. Wire localized left 6:00 breast lumpectomy. Drains none. Blood loss minimal. The patient was taken to the recovery room in satisfactory addition without arm complication Rip Montanez M.D., F.A.C.S. Surgeon: Rip Montanez Type of Anesthesia: General and Local Anesthesiologist: Casper Beth
== END 2021-09-07 23:59 | disposition home or self-care (01) ==
LOC: SDC 07:34 → AC 07:34
PROVIDERS: PCP Family Medicine; Referring Provider Surgery; Visit Provider Surgery
PROC: (CPT 19301; principal; 2021-09-07 09:45)
DX: C50.312 Malignant neoplasm of lower-inner quadrant of left female breast (principal); Z17.0 Estrogen receptor positive status [ER+]; E78.5 Hyperlipidemia, unspecified; Z79.899 Other long term (current) drug therapy
CPT/HCPCS: 19301; 38500; 19285; 00400; 38792; 36415; 71046; 76098; 80053; 85027; 87426; 88305; 88307; 88331; 88341; 88342; 93005; A9541; C9803; J7120; J2405; Q9968

== ENCOUNTER 2021-10-11 05:29 | Day surgery (SDC) | payer MEDICARE, OTHER, SELFPAY ==
[2021-10-11] VITALS (8 sets, daily range): BP systolic 96–150; BP diastolic 59–137; PULSE 62–73; RESP 14–16; TEMP 36.1–37; O2SAT 94–100; BMI 32.9
[2021-10-11] MEDS: Lactated Ringers 1,000 ML 15 ML IV (05:56)
--- NOTE | 2021-10-11 06:16 | PCM.HP.STD ---
HPI - General HPI Narrative SIDDHARTH MCKEON, is a 66 F who presents screening colonoscopy. Her previous one was 13 years ago. She enjoys good health although she does have a history of breast cancer and she does have a history of seizure disorder. She presents via open access today. She states she was able to accomplish the bowel prep. [facility] Medical History Abnormal mammogram of left breast Abnormal ultrasound of breast Cancer History of pain when walking Hyperlipidemia Non-smoker Seizure Tubal ligation evaluation Wears glasses Home Medications alendronate 70 mg tablet 70 mg PO WE 04/21/20 [History Last Taken Unknown] phenobarbital 32.4 mg tablet 32.4 mg PO TID tab 04/21/20 [History Last Taken 09/07/21] phenytoin sodium extended 100 mg capsule 100 mg PO TID 04/21/20 [History Last Taken 09/07/21] Osteo Bi-Flex Triple Strength 1 tab PO DAILY 09/01/21 [History Last Taken Unknown] cholecalciferol (vitamin D3) [Vitamin D3] 50 mcg PO DAILY 09/01/21 [History Last Taken Unknown] omega 4-kxk-krw-fish oil [Fish Oil] 1 cap PO DAILY 09/01/21 [History Last Taken Unknown] Allergy/AdvReac Type Severity Reaction Status Date / Time Sulfa (Sulfonamide Allergy Severe Tongue Verified 10/11/21 05:51 Antibiotics) feels swollen Family History (Updated 09/27/21 @ 09:05 by Celina Brambila, CALLIE) Mother Diabetes CVA (cerebral vascular accident) Father COPD (chronic obstructive pulmonary disease) Sister Cancer OVARIAN Aunt Breast cancer Surgical History History of bone marrow biopsy History of lumpectomy of right breast Social History Smoking Status: Never smoker alcohol intake: never substance use type: does not use ROS Constitutional Constitutional: Reports systems reviewed and no addt'l complaints, except as documented Cardiovascular Cardiovascular: Denies chest pain Respiratory/Chest Respiratory/Chest: Denies shortness of breath at rest Gastrointestinal Gastrointestinal: Denies abdominal pain, change in bowel habits, hematochezia or melena Vital Signs Vital Signs Vital Signs: 10/11/21 05:52 Temperature 98.6 F Temperature Source Temporal Pulse Rate 73 Respiratory Rate 16 Respiratory Pattern Normal Blood Pressure 131/81 H Blood Pressure Mean 97 Blood Pressure Source Monitor Blood Pressure Position Sitting Blood Pressure Location Right Arm Pulse Ox 99 Oxygen Delivery Method Room Air Weight Weight: 180 lb 1.883 oz Body Mass Index (BMI) 32.9 Physical Exam Const alert, oriented x3 and no apparent distress General Appearance: cooperative and comfortable Eyes General Eye: normal appearance of both eyes Neck General: normal visual inspection Chest inspection of chest normal Resp Effort and Inspection: able to speak in complete sentences and symmetric chest movement Auscultation: clear to auscultation bilaterally Cardio regular rate and regular rhythm GI soft to palpation, non-tender and non-distended Extremity no calf tenderness Neuro oriented x3 Psych thought process normal Assessment & Plan Assessment/Plan (1) Encounter for screening for malignant neoplasm of colon: PLAN: 66-year-old female presents for screening colonoscopy with possible biopsy or polypectomy as indicated. She presents via open access. Previous one was 13 years ago. She has had an opportunity to ask and have questions answered. We will proceed as noted. Rip Montanez M.D., F.A.C.S.
--- NOTE | 2021-10-11 06:30 | COLBX_PTH ---
PATIENT: SIDDHARTH MCKEON LOC: EN U#:[id number] AGE/SX: 66/F ROOM: RE10/11/[address]: Dr. Rip Montanez MD : 1955 BED: DIS: 10/11/2021 SPEC #: [id number] RECD: 10/11/21 15:52 STATUS: CEDRIC DIEZ #: [id number] JOHN: 10/11/21 06:[address]: Rip Montanez DEPT: SURGICAL PATHOLOGY RECD BY: Wilfredo Rich ENTERED: 10/12/21 09:44 SP TYPE: COLON BX OTHR DR: Dr. Radha Gómez, DO Tissues: Transverse colon Procedures: Surgery Specimen Level IV HEADER OPERATION: Colonoscopy ? open access (MOD) PRE-OP DIAGNOSIS: Screening TISSUE SUBMITTED: Distal transverse polyp MICROSCOPIC DIAGNOSIS Distal transverse colon polyp, biopsy: A fragment of colonic mucosa, no pathologic diagnosis. See comment. SJ:марина 10/13/2021 COMMENT Hyperplastic or adenomatous changes are not seen. MICROSCOPIC DESCRIPTION Slides are reviewed. GROSS DESCRIPTION Received in fixative is one container labeled with the patient's name and designated distal transverse polyp. The specimen consists of one irregular fragment of light nam soft tissue that measures 0.3 x 0.3 x 0.1 cm. The specimen is totally submitted in one cassette. / SJ:марина 10/12/2021 TC:4 CPT: 48303
[2021-10-11] MEDS: Midazolam 5 MG/ML Syringe (06:32)
--- NOTE | 2021-10-11 06:55 | OP.COLON_ITS ---
Patient Name: Radha Pennington Procedure Date: 10/11/2021 6:16 AM Date of : 1955 Age: 66 Procedure: Colonoscopy Indications: Screening for colorectal malignant neoplasm Providers: Rip Montanez MD Referring MD: Rip Montanez MD Medicines: Midazolam 3 mg IV, Meperidine 100 mg IV Patient Profile: Last Colonoscopy: more than 10 years ago. Complications: No immediate complications. Procedure: Pre-Anesthesia Assessment: - Prior to the procedure, a History and Physical was performed, and patient medications and allergies were reviewed. The patient's tolerance of previous anesthesia was also reviewed. The risks and benefits of the procedure and the sedation options and risks were discussed with the patient. All questions were answered, and informed consent was obtained. Prior Anticoagulants: The patient has taken no previous anticoagulant or antiplatelet agents. ASA Grade Assessment: II - A patient with mild systemic disease. After reviewing the risks and benefits, the patient was deemed in satisfactory condition to undergo the procedure. After I obtained informed consent, the scope was passed under direct vision. Throughout the procedure, the patient's blood pressure, pulse, and oxygen saturations were monitored continuously. The Colonoscope was introduced through the anus and advanced to the cecum, identified by appendiceal orifice and ileocecal valve. The colonoscopy was performed without difficulty. The patient tolerated the procedure well. The quality of the bowel preparation was good. The ileocecal valve and the appendiceal orifice were photographed. Moderate Sedation: Moderate (conscious) sedation was personally administered by the endoscopist. The following parameters were monitored: oxygen saturation, heart rate, blood pressure, and response to care. Total physician intraservice time was 15 minutes. Scope In: 6:36:22 AM Scope Withdrawal Time 0 hours 8 minutes 56 seconds Scope Out: 6:49:50 AM Total Procedure Duration Time 0 hours 13 minutes 28 seconds Findings: Hemorrhoids were found on perianal exam. A 6 mm polyp was found in the distal transverse colon. The polyp was sessile. The polyp was removed with a cold snare. Resection and retrieval were complete. Scattered diverticula were found in the sigmoid colon. Impression: - Hemorrhoids found on perianal exam. - One 6 mm polyp in the distal transverse colon, removed with a cold snare. Resected and retrieved. - Diverticulosis in the sigmoid colon. Recommendation: - Discharge patient to home. - Resume previous diet. - Continue present medications. - Repeat colonoscopy in 5 years for surveillance based on pathology results. - Telephone my office for pathology results in 1 week. Procedure Code(s): --- Professional --- 32026, Colonoscopy, flexible; with removal of tumor(s), polyp(s), or other lesion(s) by snare technique 55199, 59, Moderate sedation services provided by the same physician or other qualified health acute care assistant performing the diagnostic or therapeutic service that the sedation supports, requiring the presence of an independent trained observer to assist in the monitoring of the patient's level of consciousness and physiological status; initial 15 minutes of intraservice time, patient age 5 years or older Diagnosis Code(s): --- Professional --- Z12.11, Encounter for screening for malignant neoplasm of colon K64.9, Unspecified hemorrhoids D12.3, Benign neoplasm of transverse colon (hepatic flexure or splenic flexure) K57.30, Diverticulosis of large intestine without perforation or abscess without bleeding CPT copyright 2017 [employer] [place] [employer]. All rights reserved. The codes documented in this report are preliminary and upon systems admin review may be revised to meet current compliance requirements. Rip Montanez MD 10/11/2021 6:54:59 AM This report has been signed electronically. Number of Addenda: 0 Note Initiated On: 10/11/2021 6:16 AM
--- NOTE | 2021-10-11 06:56 | OP.CCLET_ITS ---
10/11/2021 Radha Gómez [address] [place] [address] Re : Colonoscopy procedure for Radha Pennington Dear Dr. Gómez This procedure was performed on Monday, October 11, 2021. My impressions and recommendations are as follows: Impressions : - Hemorrhoids found on perianal exam. - One 6 mm polyp in the distal transverse colon, removed with a cold snare. Resected and retrieved. - Diverticulosis in the sigmoid colon. Recommendations : - Discharge patient to home. - Resume previous diet. - Continue present medications. - Repeat colonoscopy in 5 years for surveillance based on pathology results. - Telephone my office for pathology results in 1 week. My findings are described in the full procedure note, which is enclosed. If I can be of further assistance, please feel free to contact me at Doctor phone number(s): Work: . Sincerely, Rip Montanez MD 10/11/2021 6:54:59 AM This report has been signed electronically.
--- NOTE | 2021-10-11 08:08 | SUR.PHASEII ---
patient states she is waiting for her daughter, who is working in the outpatient infusion center, to pick her up.
== END 2021-10-11 08:09 | disposition home or self-care (01) ==
LOC: EN 05:30 → AC 05:30
PROVIDERS: PCP Family Medicine; Referring Provider Surgery; Visit Provider Surgery
PROC: 0DJD8ZZ Inspection of Lower Intestinal Tract, Via Natural or Artificial Opening Endoscopic (ICD-10-PCS; CPT 45378; principal; 2021-10-11 06:25)
DX: Z12.11 Encounter for screening for malignant neoplasm of colon (principal); G40.909 Epilepsy, unspecified, not intractable, without status epilepticus; C50.512 Malignant neoplasm of lower-outer quadrant of left female breast; Z17.0 Estrogen receptor positive status [ER+]; K63.5 Polyp of colon; K57.30 Diverticulosis of large intestine without perforation or abscess without bleeding; K64.9 Unspecified hemorrhoids; Z20.822 Contact with and (suspected) exposure to COVID-19; E78.5 Hyperlipidemia, unspecified; Z79.83 Long term (current) use of bisphosphonates; Z79.899 Other long term (current) drug therapy
CPT/HCPCS: 45385; 77014; 77290; 77332; 87426; 88305; 99152; 99153; C9803; J7120

== ENCOUNTER → 2022-08-11 | Outpatient (CLI) | payer MEDICARE, OTHER, SELFPAY ==
--- NOTE | 2022-08-11 09:39 | BI_ITS ---
MAMMOGRAPHY - BILATERAL DIAGNOSTIC REASON FOR EXAM: Female, 67 years old. Follow-up for left lumpectomy. PERTINENT HISTORY: Personal history of breast cancer. TECHNIQUE: Digital bilateral breast butch (3D mammographic acquisition) in the CC and MLO projections. 2-D mediolateral oblique (MLO) and craniocaudad (CC) views of both breasts were obtained. CAD: Full Field Digital Mammography with Computer Added Detection was performed. COMPARISON: Comparison is made with prior study dated 08/10/2021 and 09/07/2021. FINDINGS: Breast Composition: The breasts are heterogeneously dense, which may obscure small masses. There are no dominant masses or suspicious calcifications. The patient is status post resection of the nodular density in the deep inferior central portion of the left breast. Postoperative scarring is seen. No colostomy calcifications present. No other significant abnormalities are identified. BI/DIAG MAMM W/CAD, BILAT IMPRESSION: Status post lumpectomy of the nodular density in the deep inferior central portion of the left breast with resultant postoperative changes. One year follow-up recommended. (A) ASSESSMENT CATEGORY: BIRADS Category 2: Benign. A letter regarding these results will be sent to the patient by the facility within 30 days. Approximately 10% of breast cancers are not detected by mammography. A normal mammogram should not delay biopsy of a clinically suspicious abnormality. Electronically Signed: Timothy Beyer MD at 10:39 EST ,
== END | disposition home or self-care (01) ==
PROVIDERS: PCP Family Medicine; Visit Provider Student in an Organized Health Care Education/Training Program
DX: C50.312 Malignant neoplasm of lower-inner quadrant of left female breast (principal); Z17.0 Estrogen receptor positive status [ER+]
CPT/HCPCS: 77062; 77066; G0279

== ENCOUNTER 2023-02-21 13:02 | Emergency (ER) | payer MEDICARE, OTHER, SELFPAY ==
[2023-02-21 13:03] VITALS: BP 148/85; PULSE 70; RESP 16; TEMP 36.4; O2SAT 98; BMI 34.4
--- NOTE | 2023-02-21 15:10 | ED.RN ---
PT UPSET WITH WAIT FOR ROOM, THIS RN EDUCATED ON TRIAGE PROCESS. PT STATES SO I SHOULD JUST MAKE UP SOME SYMPTOMS SO I DON'T HAVE TO SIT HERE FOR 2 HOURS AND WAIT. THIS RN APOLOGIZED FOR WAIT, PT APPEARS IN NO DISTRESS, AMBULATES IN DEPT WITHOUT DIFFICULTY, VITAL SIGNS STABLE.
--- NOTE | 2023-02-21 15:27 | EX.ED.GENINJ ---
HPI History of Present Illness Chief Complaint: Fall Detail of Chief Complaint: Left chest injury Informant: patient Narrative Narrative: Patient presents to the emergency department after sustaining a fall and injuring her left chest. Patient states that she was walking with her dog when she started chasing some gaze and let go of the dog and stepped into a hole and fell onto her left chest on the ground. Patient felt something move in her ribs. She complains of pain with movement and sitting. She denies shortness of breath. Denies any other injuries. She is not anticoagulated. Patient has remote history of lumpectomy with lymph nodes removed from the left chest and she was worried about injuring or causing issues to that area. Her surgery for this was in 2021. [facility] Medical History Abnormal mammogram of left breast Abnormal ultrasound of breast Cancer History of pain when walking Hyperlipidemia Non-smoker Seizure Tubal ligation evaluation Wears glasses Home Medications alendronate 70 mg tablet 70 mg PO WE 04/21/20 [History Last Taken Unknown] phenobarbital 32.4 mg tablet 32.4 mg PO TID 04/21/20 [History Last Taken 09/07/21] phenytoin sodium extended 100 mg capsule 100 mg PO TID 04/21/20 [History Last Taken 09/07/21] cholecalciferol (vitamin D3) 25 mcg (1,000 unit) chewable tablet (Vitamin D3) 50 mcg PO DAILY 09/01/21 [History Last Taken Unknown] glucosamine 750 [id number] no1 644 mg-C 30 mg-evelyne 1 mg tablet (Osteo Bi-Flex Triple Strength) 1 tab PO DAILY 09/01/21 [History Last Taken Unknown] omega 5-khf-uwh-fish oil 1,000 mg (120 mg-180 mg) capsule (Fish Oil) 1 cap PO DAILY 09/01/21 [History Last Taken Unknown] anastrozole 1 mg tablet 1 mg PO DAILY #90 tabs 12/28/22 [Rx Last Taken Unknown] hydrocodone-acetaminophen 5-325mg 5mg-325mg 1 tab PO Q4H PRN PRN Pain 2 days #10 TABLETS 02/21/23 [Rx Last Taken Unknown] Allergy/AdvReac Type Severity Reaction Status Date / Time Sulfa (Sulfonamide Allergy Severe Tongue Verified 02/21/23 13:05 Antibiotics) feels swollen Family History Mother Diabetes CVA (cerebral vascular accident) Father COPD (chronic obstructive pulmonary disease) Sister Cancer OVARIAN Aunt Breast cancer Surgical History History of bone marrow biopsy History of lumpectomy of right breast Social History Smoking Status: Never smoker alcohol intake: never substance use type: does not use ROS ROS ED Review of Systems ROS Unobtainable: other Constitutional Constitutional ED: Reports lethargy; Denies chills, fever(s), sweats or weight loss Eyes Eyes: Denies blurry vision, change in vision or diplopia ENT ENT ED: Denies rhinorrhea or sore throat Cardiovascular Cardiovascular: Reports chest pain; Denies orthopnea or racing heartbeat Respiratory/Chest Respiratory/Chest: Denies cough, dyspnea, dyspnea on exertion, orthopnea or sputum Gastrointestinal Gastrointestinal: Denies abdominal pain, diarrhea, nausea or vomiting Genitourinary Genitourinary ED: Denies dysuria, hematuria or urinary frequency Musculoskeletal Musculoskeletal: Denies arthralgias, back pain, myalgias or neck pain Integumentary Denies abscess, Abrasions or rash Neurologic Neurologic: Denies headache(s) or weakness Psychiatric Psychiatric: Denies anxiety, depression or suicidal thoughts Endocrine Endocrinology: Denies polydipsia, polyphagia or polyuria Hematologic/Lymphatic Hematologic/Lymphatic: Denies easy bleeding, easy bruising or lymphadenopathy Allergic/Immunologic Allergic/Immunologic ED: Denies mouth swelling, tongue swelling or urticaria EXAM Physical Exam Const Vital Signs: 02/21/23 13:03 Temperature 97.5 F L Temperature Source Temporal Pulse Rate 70 Respiratory Rate 16 Blood Pressure 148/85 H Blood Pressure Mean 106 Pulse Ox 98 Oxygen Delivery Method Room Air Positive well nourished and well developed General Appearance ED: well developed and NAD HEENT Reports TM's clear and moist mucous membranes normocephalic and atraumatic; Negative for trauma or tenderness Tympanic Membrane ED: Yes TM's clear Eyes PERRL and EOMs intact bilaterally General Eye ED: Negative for pale conjunctiva or scleral icterus Neck no lymphadenopathy, supple and no JVD General: Negative for tenderness Chest Wall palpation of chest normal Chest Narrative: Tenderness to palpation over the lower left ribs in the midaxillary line. There is no crepitus or subcu emphysema noted. There is no ecchymosis or bruising. Chest: Negative for tenderness Resp normal respiratory effort and clear to auscultation bilaterally Effort and Inspection: Negative for respiratory distress or pain with movement Auscultation: Negative for rhonchi, wheezes or diminished lung sounds Cardio regular rate, regular rhythm, S1 normal heart sound, S2 normal heart sound and no murmurs Peripheral Pulses: pulses 2+ throughout GI normal to inspection, nondistended, normoactive bowel sounds, soft to palpation, non-tender, non-distended and no masses Back/Spine no CVA tenderness and no thoracic nor lumbar tenderness Extremity normal to inspection General Extremety ED: Negative for edema General Extremity: Negative for edema Neuro oriented x3, CN's II-XII intact bilaterally, no sensory deficits noted and gait normal Sensorium / Orientation: awake, alert, oriented to person, oriented to place and oriented to time Motor Exam: strength 5/5 throughout and strength abnormal Psych mental status grossly normal Skin no rashes or lesions noted and no wounds MDM MDM MDM Narrative Medical decision making narrative: Patient presents with a fall and injury to her left chest. In the differential would be chest wall contusion versus rib fracture versus pneumothorax. Patient had x-rays of the left ribs and PA chest and these were negative for rib fractures or pneumothorax or acute disease process. Patient was given 1 [place]. She will be given incentive spirometer. She will be given a prescription for [place]. Patient advised to follow-up with her primary care physician 5 to 7 days. She is to return if hemoptysis, shortness of breath, worsening pain, or condition worsening way. Radiography Diagnostic Testing: Clinical Impression(s) from Imaging Studies Ribs w/Chest X-Ray 02/21/23 15:30 IMPRESSION: No acute findings in the chest or left ribs. Electronically Signed: Dipak Du MD at 16:49 EDT Reading Location ID and State: [facility] / [place] , Service support , Three-view x-rays of the left ribs and chest obtained interpreted by myself as no acute fractures or evidence of pneumothorax or acute disease process. Discharge Plan Triage Chief Complaint: Fall ED Provider: [facility] Dx/Rx/DC Orders Clinical Impression: Chest wall contusion Instructions: ED Chest Wall Contusion Prescriptions: New hydrocodone-acetaminophen [hydrocodone-acetaminophen] 5-325 mg tablet 1 tab PO Q4H PRN PRN (Reason: Pain) 2 Days Qty: 10 0RF No Action alendronate 70 mg tablet 70 mg PO WE phenobarbital 32.4 mg tablet 32.4 mg PO TID phenytoin sodium extended 100 mg capsule 100 mg PO TID cholecalciferol (vitamin D3) [Vitamin D3] 25 mcg (1,000 unit) Tablet,Chewable 50 mcg PO DAILY omega 5-ign-hac-fish oil [Fish Oil] 1,000 mg (120 mg-180 mg) Capsule 1 cap PO DAILY Osteo Bi-Flex Triple Strength 750 mg-644 mg- 30 mg-1 mg Tablet 1 tab PO DAILY anastrozole 1 mg tablet 1 mg PO DAILY Qty: 90 3RF Primary Care Provider: Radha Gómez Referrals: Radha Gómez DO [Primary Care Provider] - 5-7 Days Disposition Disposition: Home, Self Care
--- NOTE | 2023-02-21 15:30 | RAD_ITS ---
EXAM: XR LEFT RIBS AND AP CHEST, 3 OR MORE VIEWS CLINICAL INDICATION: fall TECHNIQUE: Frontal and oblique views of the left ribs and frontal view of the chest. COMPARISON: No relevant prior studies available. FINDINGS: LUNGS AND PLEURAL SPACES: Unremarkable. No consolidation or edema. No pneumothorax. No effusion. HEART: Unremarkable. Cardiac silhouette not enlarged. MEDIASTINUM: Central airways and mediastinal contour are unremarkable. BONES/JOINTS: Old right lateral eighth rib fracture. VASCULATURE: There are multiple metallic clips in the left axilla. This is consistent for a prior axillary dissection. RAD/Ribs Uni Min 3V w/PA Chest IMPRESSION: No acute findings in the chest or left ribs. Electronically Signed: Dipak Du MD at 16:49 EDT ,
[2023-02-21] MEDS: HYDROcodone Bitartrate/Apap 5/325 Tablet PO (17:26)
== END 2023-02-21 17:35 | disposition home or self-care (01) ==
LOC: ED 17:53
PROVIDERS: Emergency Provider Emergency Medicine; PCP Family Medicine; Visit Provider Emergency Medicine
DX: S20.212A Contusion of left front wall of thorax, initial encounter (principal); E78.5 Hyperlipidemia, unspecified; W17.2XXA Fall into hole, initial encounter; Y93.K1 Activity, walking an animal; Z79.899 Other long term (current) drug therapy
CPT/HCPCS: 71101; 99282

== ENCOUNTER → 2023-08-13 | Outpatient (CLI) | payer MEDICARE, OTHER, SELFPAY ==
--- NOTE | 2023-08-13 10:30 | BI_ITS ---
MAMMOGRAPHY - BILATERAL SCREENING REASON FOR EXAM: Female, 68 years old. Routine annual screening examination. PERTINENT HISTORY: Personal history of breast cancer. Prior right excisional breast biopsy and left breast aspiration. Prior left lumpectomy with lymph node dissection. TECHNIQUE: Digital bilateral breast angel (3D mammographic acquisition) in the CC and MLO projections. 2-D mediolateral oblique (MLO) and craniocaudad (CC) views of both breasts were obtained. CAD: Full Field Digital Mammography with Computer Added Detection was performed. COMPARISON: Comparison is made with prior study dated August 10, 2021 and August 11, 2022. FINDINGS: Breast Composition: The breasts are heterogeneously dense, which may obscure small masses. There are no dominant masses or suspicious calcifications. Was again, the patient is status post resection of the nodular density in the deep inferior central portion of left breast. Stable postoperative scarring is seen. No other significant abnormalities are identified. There has been no significant change since the prior study. BI/SCRN MAMM (CAD)W/ANGEL BILAT IMPRESSION: Stable bilateral screening mammogram. Yearly follow-up mammogram recommended. (A) ASSESSMENT CATEGORY: BIRADS Category 2: Benign. A letter regarding these results will be sent to the patient by the facility within 30 days. Approximately 10% of breast cancers are not detected by mammography. A normal mammogram should not delay biopsy of a clinically suspicious abnormality. [id number] Electronically Signed: Timothy Beyer MD at 14:51 EST ,
--- OUTSIDE RECORDS SUMMARY | 2023-08-13 12:09 | XMS RPT_ITS | CCD ---
Author Name Unknown Address [address] [place] [address] Organization [facility] Care Team Providers Care Line Assembler Aircraft Name Role Phone Radha Gómez DO Primary Care Provider LINDA PATRICIA Attending Unavailable RADHA GÓMEZ Primary Care Unavailable Allergies Allergy Classification Reported Allergen(s) Allergy Type Date of Onset Reaction(s) Facility (12 sources) Sulfonamides (Antibiotic); Translations: [SULFA (SULFONAMIDE ANTIBIOTICS)] Drug Allergy 06-25-2018 [facility] Medications Current Medications Medication Drug Class(es) Dates Sig (Normalized) Sig (Original) PHENobarbital 32.4 mg oral tablet (8 sources) Start: 04-17-2023 End: 05-19-2023 take 1 tablet by mouth three times daily PHENobarbital 32.4 mg tablet Indications: Seizure (HCC) Take 1 tablet by mouth three times daily for 30 days. 90 tablet 0 04/19/2023 05/19/2023 Active Completed/Discontinued Medications Medication Drug Class(es) Dates Sig (Normalized) Sig (Original) acetaminophen 500 mg oral tablet (11 sources) take 1 tablet by mouth every eight hours as needed acetaminophen (TYLENOL EXTRA STRENGTH) 500 mg tablet Take 500 mg by mouth every 8 hours as needed. 0 Active Problems Problem Classification Problem Date Documented Da te Episodic/Chronic Epilepsy; convulsions (5 sources) Seizure; Translations: [Unspecified convulsions] Episodic Results Test Name Value Interpretation Reference Range Facil ity Encounters Encounter Date Encounter Type Care Provider Facility Start: 04-25-2023 Telephone encounter Linda delgado MD Work Phone: Neurology Procedures Date Procedure Procedure Detail Performing Clinician Start: 07-07-2008 Mammography Linda bang MD Work Phone: Plan of Treatment Date Care Activity Detail Author Start: 03-23-2023 Influenza vaccination [facility] Start: 07-23-2022 ADVANCE DIRECTIVE DISCUSSION ADVANCE DIRECTIVE DISCUSSION [facility] Start: 07-23-2022 [facility] Start: 03-23-2022 Influenza vaccination INFLUENZA (#1) [facility] Start: 07-23-2021 ADVANCE DIRECTIVE DISCUSSION ADVANCE DIRECTIVE DISCUSSION [facility] Start: 07-23-2021 DEPRESSION ASSESSMENT DEPRESSION ASS [facility] Start: 2019 BONE DENSITY BONE DENSITY [facility] Start: 2019 Bone Density Screening Bone Density Screening [facility] Start: 2019 Pneumococcal Vaccine : 65+ (1 - PCV) Pneumococcal Vaccine: 65+ (1 - PCV) [facility] Start: 2019 PNEUMOCOCCAL: 65+ (1 - PCV) PNEUMOCOCCAL: 65+ (1 - PCV) [facility] Start: 07-07-2009 Mammography [facility] Start: 2004 SHINGRIX VACCINE (1 of 2) SHINGRIX V ACCINE (1 of 2) [facility] Start: 1999 COLOGUARD (FIT-DNA) COLOGUARD (FIT-D NA) [facility] Start: 1999 Colonoscopy COLONOSCOPY [facility] Start: 1999 COLORECTAL CANCER SCREENING COLORECTAL CANCER SCREENING [facility] Start: [address] COLONOGRAPHY [facility] Start: 1999 DIABETES SCREEN DIABETES SCREEN [facility] Start: 1999 Diabetes Screening Diabetes Screenin g [facility] Start: 1999 FECAL OCCULT BLOOD FECAL OCCULT BLOO D [facility] Start: 1999 Lipid 1996 panel - S marcelino or Plasma Lipid Screening [facility] Start: 1999 LIPID SCREEN LIPID SCREEN [facility] Start: 1999 SIGMOIDOSCOPY SIGMOIDOSCOPY [facility] Start: 1973 Urine microalbumin profile [facility] Start: 1972 HEPATITIS C SCREENING HEPATITIS C SC SETH [facility] Start: 1954 COVID-19 VACCINE (#1) COVID-19 VACCI NE (#1) [facility] Immunizations Immunization Date Immunization Notes Care Provider Fa cility 05-09-2022 influenza virus vacc ine, unspecified formulation Linda Patricia MD Work Phone: [facility] Payers Date Payer Category Payer Medicare [id number] 2019 Unknown [employer] SUPPLEMENT [id number] 2019-Present [phone] [address] [place] [address] Indemnity [id number] 2019 Medicare MEDICARE MEDICAR E A AND B [id number] 2019-Present [phone] [place] [address] Medicare [id number] 2019 Medicare [id number] Social History Date Type Detail Facility Start: 08-07-2017 End: 02-16-2023 Tobacco smoking status NHIS Never smoked tobacco [facility] Start: 08-07-2017 End: 02-16-2023 Tobacco use and exposure Smokeless tobacco non-user [facility] Start: 06-30-2020 End: 02-16-2023 Alcohol intake Current non-drinker of alcohol (finding) [facility] Start: 1955 Sex Assigned At Not on file [facility] Start: 08-10-2022 End: 02-16-2023 History of Social function [facility] Start: 08-10-2022 End: 02-16-2023 Area Deprivation Index [facility] National Score (1-10 0), lower number is lower risk 60 [facility] Clinical Notes 01-20-2022 to 04-25-2023 Telephone Encounter - Loretta Marrero - 04/25/2023 9:08 AM EDTTelephone Encounter - Juanita Campuzano - 04/16/2023 2:20 PM EDTTelephone Encounter - Alessandra Antonio - 03/13/2023 9:14 AM EDT Note Date & Type Note Facility 04-25-2023 Miscellaneous Notes Formattin g of this note might be different from the original. Received [facility]. Labs have been given to Dr. Patricia for review, in her in box documented in this encounter [facility] 04-16-2023 Miscellaneous Notes Formattin g of this note is different from the original. Patient phones requesting refills as follows: Requested Prescriptions Pending Prescriptions Disp Refills PHENobarbital 32.4 mg tablet 90 tablet 0 Sig: Take 1 tablet by mouth three times daily for 30 days. Please review and advise. Juanita Campuzano documented in this encounter [facility] 03-13-2023 Miscellaneous Notes Formattin g of this note might be different from the original. Open in error , pharmacy sent request yesterday. Alessandra Antonio documented in this encounter [facility] 02-16-2023 Note HNO ID: [id number] Author: Linda Patricia MD Service: ? Author Type: Physician Type: Progress Notes Filed: 03/12/2023 1:32 AM Note Text: CONSULT PROGRESS NOTE February 16, 2023 Seizure No recurrent seizure Last seizure 2012 no side effects from medications Patient was seen a year ago ,since last visit And wanted refill of her medications . No breakthrough seizures and remains stable since last visit Seen by previous Neurologists Diagnosed with breast cancer July 2021 Plan Prescriptions written Office Visit on 02/16/23 BASIC METABOLIC PNL weight rechecked as she wasn't happy about her first weight HxCC: 63 year old female , who presents for evaluation of seizures . He was previously seen by Dr. Sheehan in [facility] A year ago, since that time she had no recurrent seizure and has no medications side efects 1970 had her first seizure ,GTC seizure , and was followed by a neurologist outside of the clinic with no records are available from that time 2012 worsening of stress ,at that time and was having a cold and the medicastion prescribed Triggered a seizure , that was her last breakthrough seizure at that time she had workup done in [place] That was also reviewed with the patient a CAT scan of the brain scan in our system showed no acute lesion but cerebellar atrophy She had difficulty filling the medicaitons in the office Last prescription was written by Dr Morales (Patient had bottles of medications) Current antiepileptic medications include Dilantin 200 mg every morning and 100 mg every evening phenobarbital 52.4 mg every morning and 64.8 mg every evening she is also taking calcium and vitamin D And had a good mouth hygiene. She is on no antiepileptics Dilantin and phenobarbital for 38 years, since that she was first diagnosed with seizure On further neurologic questioning, the patient denies new headaches, no neck or back pain. She has no numbness or weakness and she feels good She has no bowel or bladder incontinence and has no falls while walking No bowel or bladder incontinence. No saddle anesthesia. No muscular atrophy or fasciculations. No current hospital medications on file. Current Outpatient Medications Medication Sig anastrozole (ARIMIDEX) 1 mg tablet Take 1 tablet by mouth every afternoon. docosahexaenoic acid/epa (FISH OIL ORAL) Take 1,000 mg by mouth once daily. acetaminophen (TYLENOL EXTRA STRENGTH) 500 mg tablet Take 500 mg by mouth every 8 hours as needed. alendronate (FOSAMAX) 70 mg tablet Take 70 mg by mouth once each week. GLUCOSAMINE/CHONDR JOVEL A SOD (OSTEO BI-FLEX ORAL) Take by mouth once daily. Cholecalciferol, Vitamin D3, (VITAMIN D) 1,000 unit cap Take 1,000 Units by mouth once daily. PHENobarbital 32.4 mg tablet Take 1 tablet by mouth three times daily for 30 days. phenytoin ER (DILANTIN) 100 mg ER capsule Take 1 capsule by mouth three times daily. No current facility-administered medications for this visit. ALLERGIES: ALLERGIES Allergen Reactions Sulfa (Sulfonamide * Swelling FMH: No family history on file. SOCIAL: Social History Tobacco Use Smoking status: Never Smokeless tobacco: Never Substance Use Topics Alcohol use: No REVIEW OF SYSTEMS (In addition to HPI): Reviewed and PHYSICAL EXAM: BP 152/74 (BP Site: Right Arm, BP Position: Sitting, BP Cuff Size: Regular Adult) Pulse 79 Resp 16 Ht 157.5 cm (5' 2 ) Wt 85.3 kg (188 lb) SpO2 98% BMI 34.39 kg/m? GEN: Alert. NAD. Normal affect. Cooperative. HEENT: No icterus. Normal mucosa. No temporal artery tenderness. Fundoscopic exam unremarkable. NECK/BACK: No meningismus. No lymphadenopathy. No significant paraspinal neck or shoulder musculature tenderness or hypertonicity. No spinous process tenderness. CV: RRR. No M/G/R/C. No carotid bruits. RESP: CTA b/l. EXT: No cyanosis. No edema. No erythema. SKIN: No rashes. No lesions. NEUROLOGICAL: MENTAL STATUS: Alert and oriented x 3. Answers simple questions and follows commands. Has good insight into her disease CN: II: Visual rutherford intact. PERRLA. No Papilledema. III, IV, : EOMI. No ptosis present. Normal saccades. V: Symmetric facial sensation to PP. VII: Face symmetric. VIII: Hearing symmetric. No nystagmus. IX, X: Symmetric palatal rise. XI: Symmetric shoulder shrug. XII: Tongue midline with symmetric movements. MOTOR: Finger tap normal. No involuntary movement seen during today's exam. Normal tone and strength. Right Upper Extremity: (of 5) Left Upper Extremity: (of 5) Deltoid 5 Deltoid 5 Biceps 5 Biceps 5 Triceps 5 Triceps 5 Finger extensors 5 Finger extensors 5 Finger flexors 5 Finger flexors 5 Dorsal interossei 5 Dorsal interossei 5 Abductor pollicis 5 Abductor pollicis 5 Right Lower Extremity: (of 5) Left Lower Extremity: (of 5) Hip flexors 5 Hip flexors 5 Hip extensors 5 Hip extensors 5 Knee flexors 5 Knee flexors 5 (more content not included)... [facility] 01-18-2023 Miscellaneous Notes Formattin g of this note might be different from the original. PSS transferred call to this nurse. Patient upset that medication still has not been refilled. Message sent to Dr. Patricia who ordered refill at this time. Notified patient. Also notified patient of appointment day and time. PSS transferred call to this nurse. Patient upset that medication has not been refilled. Advised that medication refill requests can take up to 3 business days, but since her medication is completely out, as a courtesy, and since Dr. Patricia is in office, we would make sure that a one month supply get filled until her follow up appointment. Patient still upset and very demanding, asking for ombudsman, but then stating that she does not want the ombudsman's number. Spoke to Dr. Patricia in person regarding medication refill request. She states that one refill could be prescribed until follow up since this patient has not been seen in office since 07-01-21. Patient has been identified by name and date of : Yes Pharmacy phones for refill(s): Requested Prescriptions Pending Prescriptions Disp Refills PHENobarbital 32.4 mg tablet [Pharmacy Med Name: PHENOBARBITAL 32.4 MG TABLET] 90 tablet 3 Sig: TAKE 1 TABLET BY MOUTH THREE TIMES DAILY FOR 30 DAYS. Date of last office visit in primary care: [facility] 07/01/21 NOV scheduled for 02/23/23 [facility] Notes: PLAN: ---> work up for seizures as EEG and MRI Brain to keep as baseline If patient unable to get old records from he previous Neurologist in [place] Blood workup including liver function tests that Dilantin and phenobarbital level yearly Follow-up in one year if everything remains stable If any breakthrough seizure or other event ,schedule a sooner follow up Seizure precautions discussed: no taking baths, no swimming alone, no driving, no use of heavy machinery, no use of sharp moving objects and avoid heights. Last 2 Encounter Wt Readings: Date: Wt: 07/01/2021 81.5 kg (179 lb 11.2 oz) 06/30/2020 76.7 kg (169 lb) Please advise. Thank you. SANTIAGO Torres documented in this encounter [facility] 01-18-2023 Miscellaneous Notes Formattin g of this note might be different from the original. Patient asking for refills of phenobarb when she has not been in the office since 2020 I explained to Jessica that the medication cannot be filled if the patient did not show for more than 1 year As a courtesy refill the prescription until patient comes for the follow-up appointment But no refills will be made after that if she does not show up for follow-up appointment Patient who is very aggressive on the phone with the nurse, is aware of the rules documented in this encounter [facility] 01-18-2023 Miscellaneous Notes Formattin g of this note might be different from the original. Duplicate encounter. Patient requested refill, see previous encounter. Order already has been pended by Gila Camacho. Pharmacy verified in [facility] Patient has been identified by name and date of : Yes Patient requesting a call when RX is approved and sent to the pharmacy. Please call patient at: [phone] Patient phones for refill(s): PHENobarbital 32.4 mg tablet Patient stated that she is completed out of medication. Date of last office visit : 07/01/2021 States they spoke on the phone in August. Date of next office visit : 02/23/2023 Last 2 Encounter Wt Readings: Date: Wt: 07/01/2021 81.5 kg (179 lb 11.2 oz) 06/30/2020 76.7 kg (169 lb) Please advise. Alessandra Antonio documented in this encounter [facility] 07-07-2022 Miscellaneous Notes Formattin g of this note might be different from the original. Per appt desk, patient is rescheduled for 08/24/2022 Bridgette Pardo Patient's appt with dr. Patricia was canceled. Please call pt to reschedule documented in this encounter [facility] 07-07-2022 Miscellaneous Notes Formattin g of this note might be different from the original. [facility] 07/01/21 NOV 08/24/22 Patient phones requesting refills as follows: Requested Prescriptions Pending Prescriptions Disp Refills phenytoin ER (DILANTIN) 100 mg ER capsule 270 capsule 3 Sig: Take 1 capsule by mouth three times daily. PHENobarbital 32.4 mg tablet 90 tablet 3 Sig: Take 1 tablet by mouth three times daily for 30 days. Please review and advise. Juanita Campuzano documented in this encounter [facility] 06-30-2022 Miscellaneous Notes Formattin g of this note might be different from the original. Called pt she will set up a my chart with her daughters help she would like to have a VV on Saturday 07/07. I am calling her morning to see if she is able to switch to VV apt. documented in this encounter [facility] 05-17-2022 Miscellaneous Notes Addended by: JESSICA SILVA on: 05/17/2022 09:10 AM Modules accepted: Orders Phenobarbital order pended to provider. VINNY Louis, RN May 17, 2022 9:08 AM Patient is calling in requesting a refill on phenobarbital. Patients pharmacy is [facility] in [place]. No need to call patient to notify it sent to pharmacy. Please advise, thanks! documented in this encounter [facility] 01-20-2022 Miscellaneous Notes Formattin g of this note is different from the original. Patient has been identified by name and date of : Yes Pharmacy phones for refill(s): Pending Prescriptions Disp Refills PHENOBARBITAL 32.4 MG TABLET 90 tablet 3 Sig: TAKE 1 TABLET BY MOUTH THREE TIMES A DAY KESHIA Class: C-IV FARA: Yes Date of last office visit in Neurology: [facility] 07/01/2021 Appointment scheduled for 07/07/2022 Last 2 Encounter Wt Readings: Date: Wt: 07/01/2021 81.5 kg (179 lb 11.2 oz) 06/30/2020 76.7 kg (169 lb) TC to patient who verifies that a refill is needed. Please advise. Thank you. JUANITA Torres documented in this encounter [facility] Diagnosis Seizure (HCC)- Primary Other convulsions [facility] Diagnosis Seizure (HCC) Other convulsions [facility] Diagnosis Seizure (HCC) Other convulsions documented in this encounter [facility] Summary Purpose Family History No Family History Records Found Advance Directives No Advanced Directives Records Found Additional Source Comments Source Comments (unrecognize d section and content) In the event this informatio n is protected by the Federal Confidentiality of Alcohol and Drug Abuse Patient Records regulations: The Federal rules restrict any use of the information to criminally investigate or prosecute any alcohol or drug abuse patient.[facility] the event this information is protected by the Federal Confidentiality of Alcohol and Drug Abuse Patient Records regulations: The Federal rules restrict any use of the information to criminally investigate or prosecute any alcohol or drug abuse patient.[facility] Foundation[facility] the event this information is protected by the Federal Confidentiality of Alcohol and Drug Abuse Patient Records regulations: The Federal rules restrict any use of the information to criminally investigate or prosecute any alcohol or drug abuse patient.[facility] Foundation[facility] the event this information is protected by the Federal Confidentiality of Alcohol and Drug Abuse Patient Records regulations: The Federal rules restrict any use of the information to criminally investigate or prosecute any alcohol or drug abuse patient.[facility] Foundation[facility] the event this information is protected by the Federal Confidentiality of Alcohol and Drug Abuse Patient Records regulations: The Federal rules restrict any use of the information to criminally investigate or prosecute any alcohol or drug abuse patient.[facility] Foundation[facility] the event this information is protected by the Federal Confidentiality of Alcohol and Drug Abuse Patient Records regulations: The Federal rules restrict any use of the information to criminally investigate or prosecute any alcohol or drug abuse patient.[facility] Foundation[facility] the event this information is protected by the Federal Confidentiality of Alcohol and Drug Abuse Patient Records regulations: The Federal rules restrict any use of the information to criminally investigate or prosecute any alcohol or drug abuse patient.[facility] Foundation[facility] the event this information is protected by the Federal Confidentiality of Alcohol and Drug Abuse Patient Records regulations: The Federal rules restrict any use of the information to criminally investigate or prosecute any alcohol or drug abuse patient.[facility] Foundation[facility] the event this information is protected by the Federal Confidentiality of Alcohol and Drug Abuse Patient Records regulations: The Federal rules restrict any use of the information to criminally investigate or prosecute any alcohol or drug abuse patient.[facility] Foundation[facility] the event this information is protected by the Federal Confidentiality of Alcohol and Drug Abuse Patient Records regulations: The Federal rules restrict any use of the information to criminally investigate or prosecute any alcohol or drug abuse patient.[facility] FoundationIn the event this information is protected by the Federal Confidentiality of Alcohol and Drug Abuse Patient Records regulations: The Federal rules restrict any use of the information to criminally investigate or prosecute any alcohol or drug abuse patient.[facility] Reason for Visit (unrecogniz ed section and content) Reason Comments Refill Request Reason Comments Appointment Reason Onset Date Comments Refill Request 07/07/2022 Reason Onset Date Comments Refill Request 01/18/2023 Reason Onset Date Comments Refill Request 04/16/2023 Reason Comments Results [facility] Care Teams (unrecognized sec tion and content) Line Assembler Aircraft Relationship Specialty Start Date End Date DaliaRadha DO [address] [place], [place] [id number] PCP - General Family Medicine 05/22/17 Line Assembler Aircraft Relationship Specialty Start Date End Date Radha Gómez [address] [place], [place] [id number] PCP - General Family Medicine 05/22/17 Line Assembler Aircraft Relationship Specialty Start Date End Date DaliaRadha Deloris [address] [place], [place] [id number] PCP - General Family Medicine 05/22/17 Line Assembler Aircraft Relationship Specialty Start Date End Date Radha Gómez DO [address] [place], [place] [id number] PCP - General Family Medicine 05/22/17 Line Assembler Aircraft Relationship Specialty Start Date End Date Radha Gómez DO [address] [place], [place] [address] PCP - General Family Medicine 05/22/17 Line Assembler Aircraft Relationship Specialty Start Date End Date Radha Gómez DO [address] [place], [place] [id number] PCP - General Family Medicine 05/22/17 Line Assembler Aircraft Relationship Specialty Start Date End Date Radha Gómez DO [address] [place] [address] PCP - General Family [facility] 05/22/17 INFORMATION SOURCE (unrecogn ized section and content) FOR RECORDS PERTAINING TO PATIENTS WHO ARE OR HAVE BEEN ENROLLED IN A CHEMICAL DEPENDENCY/SUBSTANCEABUSE PROGRAM, SOME INFORMATION MAY BE OMITTED. This clinical summary was aggregated from multiple sources. Caution should be exercised in using it in the provision of clinical care. This summary normalizes information from multiple sources, and as a consequence, information in this document may materially change the coding, format and clinical context of patient data. In addition, data may be omitted in some cases. CLINICAL DECISIONS SHOULD BE BASED ON THE PRIMARY CLINICAL RECORDS. [facility]. provides no warranty or guarantee of the accuracy or completeness of information in this document.
== END | disposition home or self-care (01) ==
LOC: OPBI 10:30
PROVIDERS: PCP Family Medicine; Referring Provider Student in an Organized Health Care Education/Training Program; Visit Provider Student in an Organized Health Care Education/Training Program
DX: Z12.31 Encounter for screening mammogram for malignant neoplasm of breast (principal); Z85.3 Personal history of malignant neoplasm of breast
CPT/HCPCS: 77063; 77067

== ENCOUNTER → 2024-08-14 | Outpatient (CLI) | payer MEDICARE, OTHER, SELFPAY ==
--- NOTE | 2024-08-14 09:51 | BI_ITS ---
MAMMOGRAPHY - BILATERAL SCREENING REASON FOR EXAM: Female, 69 years old. Routine annual screening examination. PERTINENT HISTORY: Personal history of breast cancer. Prior left lumpectomy. TECHNIQUE: Digital bilateral breast angel (3D mammographic acquisition) in the CC and MLO projections. 2-D mediolateral oblique (MLO) and craniocaudad (CC) views of both breasts were obtained. CAD: Full Field Digital Mammography with Computer Added Detection was performed. COMPARISON: Comparison is made with prior study dated August 13, 2023 and August 11, 2019. FINDINGS: Breast Composition: The breasts are heterogeneously dense, which may obscure small masses. There are no dominant masses or suspicious calcifications. Once again, the patient is status post lumpectomy in the deep inferior central portion of the left breast. Stable postoperative scarring. No other significant abnormalities are identified. There has been no significant change since the prior study. BI/SCRN MAMM (CAD)W/NAGEL BILAT IMPRESSION: Stable bilateral screening mammogram. Yearly follow-up mammogram recommended. (A) ASSESSMENT CATEGORY: BIRADS Category 2: Benign. A letter regarding these results will be sent to the patient by the facility within 30 days. Approximately 10% of breast cancers are not detected by mammography. A normal mammogram should not delay biopsy of a clinically suspicious abnormality. [id number] Electronically Signed: Timothy Beyer MD at 11:05 EST ,
== END | disposition home or self-care (01) ==
LOC: OPBI 09:50
PROVIDERS: PCP Family Medicine; Referring Provider Nurse Practitioner Family; Visit Provider Nurse Practitioner Family
DX: Z12.31 Encounter for screening mammogram for malignant neoplasm of breast (principal); Z85.3 Personal history of malignant neoplasm of breast
CPT/HCPCS: 77063; 77067